=== PATIENT | male | born 1945 | race Caucasian/White ===

== ENCOUNTER 2023-03-20 13:46 | Outpatient (OUT) | payer MEDICARE, OTHER, SELFPAY ==
[2023-03-20 14:17] LABS: Basophils Percent Auto 0.1 % (0.2-2.0); Eosinophils Percent Auto 0.1 % (0.9-7.0); Immature Granulocytes Abs Auto 0.32 10^3/uL (0.00-0.03); Lymphocytes Absolute Auto 1.7 10^3/uL (1.2-3.8); Lymphocytes Percent Auto 10.6 % (20.5-60.0); Mean Corpuscular HGB Conc 32.1 g/dL (29.9-35.2); Mean Corpuscular Hemoglobin 32.7 pg (25.9-34.0); Mean Corpuscular Volume 101.8 fL (80.0-94.0); Mean Platelet Volume 10.9 fL (9.5-13.5); Monocytes Absolute Auto 1.2 10^3/uL (0.3-0.8); Monocytes Percent Auto 7.8 % (1.7-12.0); Neutrophils Absolute Auto 12.5 10^3/uL (1.4-6.5); Neutrophils Percent Auto 79.4 % (43.0-75.0); Platelet Count 208 10^3/uL (150-450); Red Blood Count 1.65 10^6/uL (4.70-6.10); Red Cell Distribution Width 14.1 % (11.0-15.0); White Blood Count 15.7 10^3/uL (4.0-11.0)
[2023-03-20 14:23] LABS: D Dimer 0.21 mg/L FEU (<=0.59)
[2023-03-20 14:40] LABS: Alanine Aminotransferase 23 U/L (16-63); Albumin Level 3.1 g/dL (3.4-5.0); Alkaline Phosphatase 48 U/L (46-116); Anion Gap 12.2; Aspartate Amino Transferase 15 U/L (15-37); BUN Creatinine Ratio 55.5; Bilirubin Total 0.6 mg/dL (0.2-1.0); Calcium 7.6 mg/dL (8.5-10.1); Carbon Dioxide 24.4 mmol/L (21.0-32.0); Chloride 102 mmol/L (98-107); Estimated GFR (African America >60 (>=60); Estimated GFR (Non-African Ame >60 (>=60); Glucose 151 mg/dL (74-106); Potassium 3.6 mmol/L (3.5-5.1); Sodium 135 mmol/L (136-145); Total Protein 5.1 g/dL (6.4-8.2)
[2023-03-20 14:44] LABS: Albumin Globulin Ratio 1.6
[2023-03-20 15:13] LABS: Hematocrit 16.8 % (42.0-54.0); Hemoglobin 5.4 g/dL (14.0-18.0)
--- NOTE | 2023-03-21 | OP_ITS ---
OPERATION DATE: ??03/21/2023 PREOPERATIVE DIAGNOSIS:? Upper GI bleed. POSTOPERATIVE DIAGNOSIS:? Antral prepyloric ulcer. PROCEDURE:? EGD. SURGEON:? Bran Hernández M.D. ANESTHESIA:? Monitored anesthesia care. ESTIMATED BLOOD LOSS: Zero. INDICATIONS AND CONSENT:? Patient is a 78-year-old male with several week history of melena.? Workup revealed severe anemia, as well as elevated BUN, consistent with upper GI bleeding.? Indications, risks, benefits, alternatives of proceeding with EGD were explained extensively to the patient, including the risks of bleeding, aspiration, esophageal/gastric/duodenal perforation or anesthetic complications.? All of his questions were answered.? Informed consent was obtained. PROCEDURE:? Patient brought to the operating room, placed in the left lateral decubitus position.? Monitored anesthesia care was provided.? Bite block was placed in the patient?s mouth.? Scope was inserted into the oropharynx.? Under direct visualization, it was advanced into the esophagus, past the cricopharyngeus, down to the stomach.? The stomach was insufflated with air.? There was bile throughout the stomach.? No old or new blood.? The pylorus was traversed down to the descending portion of the duodenum.? There was no evidence of duodenitis or ulceration.? There was no scarring within the pyloric channel.? Scope was pulled back into the stomach. In the prepyloric area, in a fold, there was noted to be a gastric ulcer.? It was shallow, encompassing approximately 20% of the circumference of the pylorus.? There was no black area or visible vessel.? No old or new blood.? No adherent clot.? There was white exudate on the surface of the ulcer.? The scope was retroflexed.? There was no significant hiatal hernia.? The GE junction was noted at approximately 38 cm.? There was no distal esophagitis or Gonzalez?s changes.? The remainder of the esophagus was unremarkable.? The scope was then withdrawn.? Patient tolerated procedure well, was sent back to the recovery room in good condition. CC:? Karen Wiley M.D. [facility]
--- NOTE | 2023-03-21 | CONS_ITS ---
CONSULTATION DATE: ??03/21/2023 REASON FOR CONSULTATION:? Upper GI bleed. HISTORY OF PRESENT ILLNESS:? Patient is a 78-year-old male with history of coronary artery disease, hypertension, hyperlipidemia, who presented to the emergency room after referral from his family doctor for weakness, as well as severe anemia.? He had been feeling more tired and short of breath with activities over the past several weeks.? Family doctor ordered a hemoglobin which came back at 5.6.? Patient is on Plavix and aspirin due to history of coronary artery disease and status post coronary artery stenting, as well as remote coronary artery bypass grafting.? Had been having melanotic stools for the past month and was on Mobic for arthritis pain.? He recently stopped the Mobic, because he was concerned about it harming his stomach.? Had been taking some Tylenol, but was taking intermittent Mobic.? Denies any nausea or vomiting or hematemesis.? Has had no abdominal pains.? Denies any previous abdominal surgery or history of ulcers in the past.? Been on no recent antibiotics or steroid.? He has had no further melanotic stools during his admission overnight.? He did receive two units of packed red blood cells.? His hemoglobin is up to 7.1 and is currently to receive an additional two units today.? He has been hemodynamically stable, without complaints. PAST SURGICAL HISTORY:? Significant for previous back surgery as well as the coronary artery bypass grafting. SOCIAL HISTORY:? He is a non-smoker.? Reports occasional social alcohol use.? Patient is retired.? FAMILY HISTORY:? Noncontributory. REVIEW OF SYSTEMS:? Ten system review of systems is negative for recent weight loss or weight gain.? Has had increased fatigue.? No light-headedness.? Has had no earache or tinnitus.? No sinus congestion.? No sore throat or hoarseness.? No chest pain, palpitations or syncope.? No chronic cough, shortness of breath or hemoptysis.? No abdominal pain, nausea or vomiting.? He has had melanotic stools.? No hematochezia or bright red blood per rectum.? No dysuria, frequency, urgency or hematuria.? No headaches, seizures or tremors.? No easy bruising or bleeding.? No heat or cold intolerance.? No polydipsia, polyphagia or polyuria. PHYSICAL EXAM:? VITAL SIGNS:? Stable.? He is afebrile.? GENERAL:? In general, he is a well developed, well nourished male, in no acute distress. HEENT:? Normocephalic, atraumatic.? Sclerae anicteric.? Conjunctiva are not injected.? Oral mucosa is moist. NECK:? Supple.? LUNGS:? Clear bilaterally.? ?? CARDIAC EXAM:? Regular rhythm and rate without appreciable murmurs, rubs or gallops. ABDOMEN:? Scaphoid.? There are normal active bowel sounds.? Soft, non-tender, non-distended.? There are no masses, hepatosplenomegaly or hernias appreciated.? No CVA tenderness.? SKIN:? Warm and dry with some ecchymoses of the upper extremities.? No clubbing cyanosis or edema. NEURO EXAM:? Non-focal.? Non-lateralizing.? LABORATORY DATA:? Laboratories are as noted in the HPI.? Coagulation factors were normal. ASSESSMENT:? A 78-year-old male on Plavix, aspirin and Mobic with melanotic stools and anemia, as well as elevated BUN, all consistent with likely upper GI bleed.? PLAN:? The plan is to keep patient NPO with IV protonix b.i.d., as well as Carafate slurry q.i.d.? We will proceed with EGD today for further evaluation.? Indications, risks, benefits, alternatives of proceeding with EGD were explained extensively to the patient, including the risks of bleeding, aspiration, esophageal/gastric/duodenal perforation or anesthetic complications, need for further surgery.? CC:? Stewart Ching M.D. ? Karen Wiley M.D. [facility]
== END 2023-03-20 13:47 | disposition home or self-care (01) ==
LOC: LAB 13:52
PROVIDERS: PCP Family Medicine; Visit Provider Family Medicine
DX: R06.02 Shortness of breath (principal); R06.00 Dyspnea, unspecified; K92.1 Melena
CPT/HCPCS: 36415; 80053; 83880; 85025; 85378

== ENCOUNTER 2023-03-20 15:14 | Inpatient (IN) | payer MEDICARE, OTHER, SELFPAY ==
[2023-03-20] VITALS (63 sets, daily range): BP systolic 109–151; BP diastolic 48–84; PULSE 59–81; RESP 0–24; TEMP 36.6–37.6; O2SAT 82–100; BMI 29.1
--- NOTE | 2023-03-20 15:58 | ED.GIBLEED1 ---
HPI - GI Bleed General Chief complaint: GI Bleed Stated complaint: Abnormal LABS Time Seen by Provider: 03/20/23 15:47 Source: patient and family Mode of arrival: Wheelchair History of Present Illness HPI Narrative: this patient's here with his for evaluation of abnormal lab tests. He states his doctor ordered some outpatient lab. The hospital and they told him his blood count was low. 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 He's been taking motorbike. He stopped taking Bobeck two weeks ago and started taking acetaminophen for his joint aches and pains. He's had a colonoscopy in the past that did not show any malignancies or tumors. He has never had an upper endoscopy. He has quite a few comorbidities including coronary bypass surgery done a number of years ago. He's noticed she's been getting substantial dyspnea with exertion over the last several weeks. He does not use oxygen. He does use occasional alcoholic beverage. Is not on any blood thinners. He does not have any other clinical bleeding that he is aware of. He has some minor stomach discomfort but nothing at this time. He is not seen any bright red blood per rectum just the black tarry stool for several weeks. He attributed it to eating Oreo cookies. Related Data Home Medications Medication Instructions Recorded Confirmed atorvastatin 80 mg tablet 80 mg PO QDAY 03/20/23 03/20/23 clopidogrel 75 mg tablet 75 mg PO 03/20/23 hydralazine 25 mg tablet 25 mg PO BID 03/20/23 03/20/23 hydrochlorothiazide 25 mg tablet 25 mg PO QDAY 03/20/23 03/20/23 meloxicam 15 mg tablet 15 mg PO QDAY 03/20/23 03/20/23 metoprolol tartrate 25 mg tablet 12.5 mg PO Q12H 03/20/23 03/20/23 torsemide 10 mg tablet 10 mg PO QDAY 03/20/23 03/20/23 Allergies Allergy/AdvReac Type Severity Reaction Status Date / Time No Known Drug Allergies Allergy Verified 03/20/23 15:23 Exam Narrative Exam Narrative: awake alert and ?3 good historian vital signs are noted. He does actually appear pale. Constitutional his conjunctiva have no scleral rectus but it is pale. HEENT examination shows eyes ears nose and throat be grossly normal. Neck is soft and supple. He has no neck pain. Restoril his lungs are clear no wheezes rales or rhonchi Chest shows heart sounds be normal no S3-S4 or murmur. He does have a large sternotomyy incision. Doesn't remember how many vessel bypass surgery had but he said it went very well he's been doing well since that time. Extremities show 2-3+ low the knee edema bilaterally. He's had vein harvesting from both sides he does take water pills. He says legs are about the same as usual. Neurological awake alert oriented no focal neurological symptoms or findings. Constitutional Vital Signs, click to edit/add: Last Vital Signs Temp 98.1 F 03/20/23 15:24 Pulse 67 03/20/23 15:24 Resp 18 03/20/23 15:24 BP 139/52 03/20/23 15:24 Pulse Ox 98 03/20/23 15:24 O2 Del Method Room Air 03/20/23 15:24 Course Vital Signs Vital signs: Vital Signs Temperature 98.1 F 03/20/23 15:24 Pulse Rate 67 03/20/23 15:24 Respiratory Rate 18 03/20/23 15:24 Blood Pressure 139/52 03/20/23 15:24 Pulse Oximetry 98 03/20/23 15:24 Oxygen Delivery Method Room Air 03/20/23 15:24 Temperature 98.1 F 03/20/23 15:24 Pulse Rate 67 03/20/23 15:24 Respiratory Rate 18 03/20/23 15:24 Blood Pressure 139/52 03/20/23 15:24 Pulse Oximetry 98 03/20/23 15:24 Oxygen Delivery Method Room Air 03/20/23 15:24 MDM - GI Bleed MDM Narrative Medical decision making narrative: patient with approximately 4-6 week history of black tarry bowel movements with a hemoglobin 5.4. Patient is hemodynamically stable. BUNs substantially elevated consistent with an upper gastrointestinal bleed. Discussed with the primary care doctor on-call. We will transfuse two units of blood and get him admitted to ICU. He is getting fluids and is on Protonix. Did discuss his leg edema and history of cardiac bypass surgery. Discharge Plan Discharge Chief Complaint: GI Bleed Time of Disposition Decision: 17:03 Prescriptions / Home Meds: No Action atorvastatin 80 mg tablet 80 mg PO QDAY clopidogrel 75 mg tablet 75 mg PO hydralazine 25 mg tablet 25 mg PO BID hydrochlorothiazide 25 mg tablet 25 mg PO QDAY meloxicam 15 mg tablet 15 mg PO QDAY metoprolol tartrate 25 mg tablet 12.5 mg PO Q12H torsemide 10 mg tablet 10 mg PO QDAY
--- NOTE | 2023-03-20 16:01 | XR_ITS ---
[address] [address] Patient Name: BASIL FREEMAN MRN: [id number] date: 1945 Sex: M Assigned Patient Location: ER Current Patient Location: ER Accession/Order Number: [id number] Exam Date: 03/20/2023 16:13 Report Date: 03/20/2023 16:25 At the request of: RON GUTIERREZ Procedure: XR chest 1V EXAM: CHEST 1 VIEW HISTORY: dyspnea TECHNIQUE: Chest, one view. COMPARISON: None. FINDINGS: Lungs are clear. No focal consolidation, pleural effusion, or pneumothorax. Pulmonary vasculature is within normal limits. Median sternotomy changes are noted. Heart size within normal limits. XR/XR chest 1V IMPRESSION: 1. No acute cardiopulmonary disease. Electronically authenticated by: STORM CLIFTON Date: 03/20/2023 16:25
[2023-03-20] MEDS: 0.9 % SODIUM CHLORIDE 1,000 ML 100 ML IV (16:18)
[2023-03-20] MEDS: PANTOPRAZOLE SODIUM 40 MG VIAL IV (16:18)
[2023-03-20 16:30] LABS: INR 1.03; Prothrombin Time 10.9 sec (9.0-11.6)
[2023-03-20 16:34] LABS: Alanine Aminotransferase 20 U/L (16-63); Albumin Globulin Ratio 1.3; Albumin Level 3.1 g/dL (3.4-5.0); Alkaline Phosphatase 50 U/L (46-116); Anion Gap 13.1; Aspartate Amino Transferase 17 U/L (15-37); Bilirubin Total 0.5 mg/dL (0.2-1.0); Calcium 8.2 mg/dL (8.5-10.1); Carbon Dioxide 24.8 mmol/L (21.0-32.0); Chloride 104 mmol/L (98-107); Estimated GFR (African America >60 (>=60); Estimated GFR (Non-African Ame >60 (>=60); Globulin 2.3 g/dL; Glucose 139 mg/dL (74-106); Potassium 3.9 mmol/L (3.5-5.1); Sodium 138 mmol/L (136-145); Total Protein 5.4 g/dL (6.4-8.2); Troponin I High Sensitivity 24.9 pg/mL (4.0-76.1)
--- NOTE | 2023-03-20 16:35 | ECG_ITS ---
[facility] Test Date: 2023-03-20 Pat Name: BASIL FREEMAN Department: Room: 2731 Gender: Male Student Worker: : 1945 Requested By: [id number] Order Number: [id number] Reading MD: ZEE AVALOS Measurements Intervals [place] Rate: 67 P: 90 [place]: 150 QRS: 54 QRSD: 126 T: 111 QT: 422 QTc: 437 Interpretive Statements 1100 Sinus rhythm 1470 with occasional supraventricular premature complexes 2540 Incomplete left bundle branch block [address] depression, can't exclude lateral myocardial ischemia 0102 ARTIFACT PRESENT 9150 abnormal ECG No previous ECG available for comparison Electronically Signed On 03-21-2023 7:09:29 EDT by ZEE AVALOS
[2023-03-20] MEDS: SUCRALFATE 1 GM TABLET PO (21:16)
[2023-03-21] VITALS (78 sets, daily range): BP systolic 112–151; BP diastolic 47–74; PULSE 52–69; RESP 2–22; TEMP 36.1–37.4; O2SAT 82–100; BMI 29.1
[2023-03-21] MEDS: FUROSEMIDE 20 MG/2 ML VIAL IVP ×2 (00:16→10:42)
[2023-03-21] MEDS: PANTOPRAZOLE SODIUM 40 MG VIAL IV ×2 (04:56→15:52)
[2023-03-21 05:04] LABS: Basophils Percent Auto 0.1 % (0.2-2.0); Eosinophils Percent Auto 0.1 % (0.9-7.0); Hemoglobin 7.1 g/dL (14.0-18.0); Immature Granulocytes Abs Auto 0.24 10^3/uL (0.00-0.03); Immature Granulocytes Pct Auto 2.5 % (0.0-0.5); Lymphocytes Absolute Auto 1.3 10^3/uL (1.2-3.8); Lymphocytes Percent Auto 13.5 % (20.5-60.0); Mean Corpuscular HGB Conc 32.7 g/dL (29.9-35.2); Mean Corpuscular Hemoglobin 31.1 pg (25.9-34.0); Mean Corpuscular Volume 95.2 fL (80.0-94.0); Mean Platelet Volume 10.9 fL (9.5-13.5); Monocytes Absolute Auto 0.9 10^3/uL (0.3-0.8); Monocytes Percent Auto 9.4 % (1.7-12.0); Neutrophils Absolute Auto 7.1 10^3/uL (1.4-6.5); Neutrophils Percent Auto 74.4 % (43.0-75.0); Platelet Count 163 10^3/uL (150-450); Red Blood Count 2.28 10^6/uL (4.70-6.10); Red Cell Distribution Width 15.9 % (11.0-15.0); White Blood Count 9.6 10^3/uL (4.0-11.0)
[2023-03-21 05:05] LABS: Anion Gap 11.4; BUN Creatinine Ratio 47.1; Calcium 7.6 mg/dL (8.5-10.1); Carbon Dioxide 25.7 mmol/L (21.0-32.0); Chloride 110 mmol/L (98-107); Estimated GFR (African America >60 (>=60); Estimated GFR (Non-African Ame >60 (>=60); Glucose 126 mg/dL (74-106); Potassium 4.1 mmol/L (3.5-5.1); Sodium 143 mmol/L (136-145)
[2023-03-21 05:19] LABS: Hematocrit 21.7 % (42.0-54.0)
[2023-03-21] MEDS: 0.9 % SODIUM CHLORIDE 250 ML IV (07:53)
--- NOTE | 2023-03-21 09:36 | OP_ITS ---
OPERATION DATE:? ?03/21/2023 PREOPERATIVE DIAGNOSIS:? Upper GI bleed. POSTOPERATIVE DIAGNOSIS:? Antral prepyloric ulcer. PROCEDURE:? EGD. SURGEON:? Bran Hernández M.D.? ANESTHESIA:? Monitored anesthesia care. ESTIMATED BLOOD LOSS: Zero. INDICATIONS AND CONSENT:? Patient is a 78-year-old male with several week history of melena.? Workup revealed severe anemia, as well as elevated BUN, consistent with upper GI bleeding.? Indications, risks, benefits, alternatives of proceeding with EGD were explained extensively to the patient, including the risks of bleeding, aspiration, esophageal/gastric/duodenal perforation or anesthetic complications.? All of his questions were answered.? Informed consent was obtained. PROCEDURE:? Patient brought to the operating room, placed in the left lateral decubitus position.? Monitored anesthesia care was provided.? Bite block was placed in the patient?s mouth.? Scope was inserted into the oropharynx.? Under direct visualization, it was advanced into the esophagus, past the cricopharyngeus, down to the stomach.? The stomach was insufflated with air.? There was bile throughout the stomach.? No old or new blood.? The pylorus was traversed down to the descending portion of the duodenum.? There was no evidence of duodenitis or ulceration.? There was no scarring within the pyloric channel.? Scope was pulled back into the stomach. In the prepyloric area, in a fold, there was noted to be a gastric ulcer.? It was shallow, encompassing approximately 20% of the circumference of the pylorus.? There was no black area or visible vessel.? No old or new blood.? No adherent clot.? There was white exudate on the surface of the ulcer.? The scope was retroflexed.? There was no significant hiatal hernia.? The GE junction was noted at approximately 38 cm.? There was no distal esophagitis or Gonzalez?s changes.? The remainder of the esophagus was unremarkable.? The scope was then withdrawn.? Patient tolerated procedure well, was sent back to the recovery room in good condition. [facility]
--- NOTE | 2023-03-21 10:07 | CONS_ITS ---
cc: KAREN WILEY ; Bran Hernández M.D.~ CONSULTATION DATE: ??03/21/2023 ? REASON FOR CONSULTATION:? Upper GI bleed. ? HISTORY OF PRESENT ILLNESS:? Patient is a 78-year-old male with history of coronary artery disease, hypertension, hyperlipidemia, who presented to the emergency room after referral from his family doctor for weakness, as well as severe anemia.? He had been feeling more tired and short of breath with activities over the past several weeks.? Family doctor ordered a hemoglobin which came back at 5.6.? Patient is on Plavix and aspirin due to history of coronary artery disease and status post coronary artery stenting, as well as remote coronary artery bypass grafting.? Had been having melanotic stools for the past month and was on Mobic for arthritis pain.? He recently stopped the Mobic, because he was concerned about it harming his stomach.? Had been taking some Tylenol, but was taking intermittent Mobic.? Denies any nausea or vomiting or hematemesis.? Has had no abdominal pains.? Denies any previous abdominal surgery or history of ulcers in the past.? Been on no recent antibiotics or steroid.? He has had no further melanotic stools during his admission overnight.? He did receive two units of packed red blood cells.? His hemoglobin is up to 7.1 and is currently to receive an additional two units today.? He has been hemodynamically stable, without complaints. ? PAST SURGICAL HISTORY:? Significant for previous back surgery as well as the coronary artery bypass grafting. ? SOCIAL HISTORY:? He is a non-smoker.? Reports occasional social alcohol use.? Patient is retired.? ? FAMILY HISTORY:? Noncontributory. ? REVIEW OF SYSTEMS:? Ten system review of systems is negative for recent weight loss or weight gain.? Has had increased fatigue.? No light-headedness.? Has had no earache or tinnitus.? No sinus congestion.? No sore throat or hoarseness.? No chest pain, palpitations or syncope.? No chronic cough, shortness of breath or hemoptysis.? No abdominal pain, nausea or vomiting.? He has had melanotic stools.? No hematochezia or bright red blood per rectum.? No dysuria, frequency, urgency or hematuria.? No headaches, seizures or tremors.? No easy bruising or bleeding.? No heat or cold intolerance.? No polydipsia, polyphagia or polyuria. PHYSICAL EXAM:? VITAL SIGNS:? Stable.? He is afebrile.? GENERAL:? In general, he is a well developed, well nourished male, in no acute distress. HEENT:? Normocephalic, atraumatic.? Sclerae anicteric.? Conjunctiva are not injected.? Oral mucosa is moist. NECK:? Supple.? LUNGS:? Clear bilaterally.? ?? CARDIAC EXAM:? Regular rhythm and rate without appreciable murmurs, rubs or gallops. ABDOMEN:? Scaphoid.? There are normal active bowel sounds.? Soft, non-tender, non-distended.? There are no masses, hepatosplenomegaly or hernias appreciated.? No CVA tenderness.? SKIN:? Warm and dry with some ecchymoses of the upper extremities.? No clubbing cyanosis or edema. NEURO EXAM:? Non-focal.? Non-lateralizing.? ? LABORATORY DATA:? Laboratories are as noted in the HPI.? Coagulation factors were normal. ? ASSESSMENT:? A 78-year-old male on Plavix, aspirin and Mobic with melanotic stools and anemia, as well as elevated BUN, all consistent with likely upper GI bleed.? ? PLAN:? The plan is to keep patient NPO with IV protonix b.i.d., as well as Carafate slurry q.i.d.? We will proceed with EGD today for further evaluation.? Indications, risks, benefits, alternatives of proceeding with EGD were explained extensively to the patient, including the risks of bleeding, aspiration, esophageal/gastric/duodenal perforation or anesthetic complications, need for further surgery.? ? CC:? Stewart Ching M.D. ? Karen Wiley M.D. [facility]
--- NOTE | 2023-03-21 10:11 | PM.GSCN ---
History of Present Illness Consult details Consult date: 03/21/23 Requesting physician: Stewart Ching Narrative: Patient seen/examined/chart reviewed/consult dictated; 78 yo male on Plavix, asa, and Mobic with 1 month h/o melanotic stools; severe anemia, elevated BUN, all consistent with UGI bleed; keep NPO, Protonix IV, carafate; hold Plavix and asa, all NSAIDs; proceed with EGD under anesthesia for further evaluation. [facility] Medical History (Updated 03/20/23 @ 17:57 by Kasia Martinez) Surgical History (Updated 03/20/23 @ 17:57 by Kasia Martinez) Social History (Updated 03/20/23 @ 17:59 by Kasia Martinez) Within the past year, how often did you have a drink containing alcohol: 2-4 times a month Within the past year, how many standard drinks containing alcohol did you have on a typical day: 1 or 2 Within the past year, how often did you have six or more drinks on one occasion: never Total score: 0 Score interpretation: A score less than 4 is consistent with normal alcohol consumption. Smoking status: Never smoker Non-prescribed substance use: denies use Previous occupational history: construction Known occupational exposures/hazards: No Highest level of school completed/degree received: high school graduate Are you now , , , , never or living with a partner: In a typical week, how many times do you talk on the telephone with family, friends, or neighbors: 3 or more times per week How often do you get together with friends or relatives: once per week Little interest or pleasure in doing things: nearly every day Feeling down, depressed, or hopeless: not at all Feel stressed/tense/nervous/anxious/difficulty sleeping: not at all Do you think of yourself as: straight/heterosexual Meds Home Medications and Allergies Home Medications Medication Instructions Recorded Confirmed Type atorvastatin 80 mg tablet 40 mg PO QDAY 03/20/23 03/20/23 History clopidogrel 75 mg tablet 75 mg PO QDAY 03/20/23 03/20/23 History hydralazine 25 mg tablet 25 mg PO BID 03/20/23 03/20/23 History hydrochlorothiazide 25 mg tablet 25 mg PO QDAY 03/20/23 03/20/23 History meloxicam 15 mg tablet 15 mg PO QDAY PRN pain 03/20/23 03/20/23 History metoprolol tartrate 25 mg tablet 12.5 mg PO BID 03/20/23 03/20/23 History torsemide 10 mg tablet 10 mg PO QDAY 03/20/23 03/20/23 History Allergies Allergy/AdvReac Type Severity Reaction Status Date / Time No Known Drug Allergies Allergy Verified 03/20/23 15:23 Exam Constitutional Vital Signs, click to edit/add: Last Vital Signs Temp 97 F L 03/21/23 09:52 Pulse 59 L 03/21/23 09:52 Resp 16 03/21/23 09:52 BP 120/60 03/21/23 09:52 Pulse Ox 100 03/21/23 09:52 O2 Del Method Room Air 03/21/23 10:07 Results Labs Labs: Abnormal lab results 03/20/23 03/20/23 03/21/23 Range/Units 15:52 17:15 04:33 RBC 2.28 L (4.70-6.10) 10^6/uL Hgb 7.1 L (14.0-18.0) g/dL Hct 21.7 L* (42.0-54.0) % MCV 95.2 H (80.0-94.0) fL RDW 15.9 H (11.0-15.0) % Lymph % (Auto) 13.5 L (20.5-60.0) % Eos % (Auto) 0.1 L (0.9-7.0) % Baso % (Auto) 0.1 L (0.2-2.0) % Neut # (Auto) 7.1 H (1.4-6.5) 10^3/uL [place] # (Auto) 0.9 H (0.3-0.8) 10^3/uL Abs Immat Gran (auto) 0.24 H (0.00-0.03) 10^3/uL Imm/Tot Granulo (auto) 2.5 H (0.0-0.5) % Chloride 110 H (98-107) mmol/L BUN 61.0 H 49.0 H (7.0-18.0) mg/dL Glucose 139 H 126 H (74-106) mg/dL Calcium 8.2 L 7.6 L (8.5-10.1) mg/dL Total Protein 5.4 L (6.4-8.2) g/dL Albumin 3.1 L (3.4-5.0) g/dL Crossmatch See Detail Diabetes panel 03/20/23 03/21/23 Range/Units 15:52 04:33 Sodium 138 143 (136-145) mmol/L Potassium 3.9 4.1 (3.5-5.1) mmol/L Chloride 104 110 H (98-107) mmol/L Carbon Dioxide 24.8 25.7 (21.0-32.0) mmol/L BUN 61.0 H 49.0 H (7.0-18.0) mg/dL Creatinine 1.09 1.04 (0.70-1.30) mg/dL Glucose 139 H 126 H (74-106) mg/dL Calcium 8.2 L 7.6 L (8.5-10.1) mg/dL AST 17 (15-37) U/L ALT 20 (16-63) U/L Alkaline Phosphatase 50 (46-116) U/L Total Protein 5.4 L (6.4-8.2) g/dL Albumin 3.1 L (3.4-5.0) g/dL Calcium panel 03/20/23 03/21/23 Range/Units 15:52 04:33 Calcium 8.2 L 7.6 L (8.5-10.1) mg/dL Albumin 3.1 L (3.4-5.0) g/dL Pituitary panel 03/20/23 03/21/23 Range/Units 15:52 04:33 Sodium 138 143 (136-145) mmol/L Potassium 3.9 4.1 (3.5-5.1) mmol/L Chloride 104 110 H (98-107) mmol/L Carbon Dioxide 24.8 25.7 (21.0-32.0) mmol/L BUN 61.0 H 49.0 H (7.0-18.0) mg/dL Creatinine 1.09 1.04 (0.70-1.30) mg/dL Glucose 139 H 126 H (74-106) mg/dL Calcium 8.2 L 7.6 L (8.5-10.1) mg/dL Adrenal panel 03/20/23 03/21/23 Range/Units 15:52 04:33 Sodium 138 143 (136-145) mmol/L Potassium 3.9 4.1 (3.5-5.1) mmol/L Chloride 104 110 H (98-107) mmol/L Carbon Dioxide 24.8 25.7 (21.0-32.0) mmol/L BUN 61.0 H 49.0 H (7.0-18.0) mg/dL Creatinine 1.09 1.04 (0.70-1.30) mg/dL Glucose 139 H 126 H (74-106) mg/dL Calcium 8.2 L 7.6 L (8.5-10.1) mg/dL Total Bilirubin 0.5 (0.2-1.0) mg/dL AST 17 (15-37) U/L ALT 20 (16-63) U/L Alkaline Phosphatase 50 (46-116) U/L Total Protein 5.4 L (6.4-8.2) g/dL Albumin 3.1 L (3.4-5.0) g/dL All other labs normal.
--- NOTE | 2023-03-21 10:34 | CA_ITS ---
Patient: BASIL FREEMAN Exam Date: 03/21/2023 : 1945 Gender:M Ordering : DR Stewart Ching . Admission #: [id number] Family : Order #: [id number] CLICK HERE TO VIEW EXAM ECHOCARDIOGRAM REPORT PROCEDURE: CA ECHO DOPPLER COMPLETE INDICATIONS: LE edema, CABG, hypertension COMPARISON: None. DESCRIPTION: COMPLETE ECHOCARDIOGRAM Real-time transthoracic echocardiography with 2D, M-mode, spectral and color flow Doppler performed. QUALITY: Technical quality was good. LEFT VENTRICLE: Normal chamber size. Mild concentric left ventricular hypertrophy. LV EF: Normal left ventricular ejection fraction, (>55%). DIASTOLIC: Grade II diastolic dysfunction. ATRIAL SEPTUM: Visually appears intact. LEFT ATRIUM: Mild dilatation. RIGHT ATRIUM: Mild dilatation. RIGHT VENTRICLE: Normal chamber size. Normal right ventricular systolic function. TRICUSPID VALVE: Normal mobility and thickness. No stenosis with trivial regurgitation. Unable to assess right sided pressures due to lack of measurable tricuspid regurgitation. MITRAL VALVE: Moderately thickened with normal mobility. No evidence of mitral valve stenosis. Mild mitral annular calcification. Mild mitral regurgitation. AORTIC VALVE: Normal trileaflet appearance. Mildly calcified aortic valve. Normal leaflet mobility. No evidence of aortic valve stenosis. No aortic regurgitation. AORTIC ROOT: Normal diameter and appearance. PULMONIC VALVE: Normal thickness and mobility. No stenosis. Trivial regurgitation. PERICARDIUM: No evidence of pericardial effusion. IVC: IVC is normal in size with no collapse. PLEURA: CONCLUSION: 1. Mild concentric left ventricular hypertrophy with normal systolic function. LV EF is 55-60%. 2. Normal right ventricular size and systolic function. 3. No significant valvular dysfunction. 4. Grade II diastolic dysfunction. 5. Unable to assess right sided pressures due to lack of measurable tricuspid regurgitation. Adult Echocardiography Procedure Report Left Ventricle LVEDD (3.7 - 5.6 cm): 5.02 cm LVESD (2.2 - 4.0 cm): 2.60 cm LVIVS thickness (0.6 - 1.2 cm): 1.36 cm LVPW thickness (0.5 - 1.0 cm): 1.17 cm e': 0.14 m/s E - e': 8.64 LVOT Max Gradient: 3.26 mm[Hg] LVOT Area (cm2): 0.90 m/s Peak Velocity (LVOT): 0.90 m/s LVOT Diameter 2.30 cm Left Atrium LA Volume Index (2D A2C): 37.03 ml/m2 Left Atrium Systolic Dimension: 4.09 cm Mitral Valve MV E to A Ratio: 1.42 Mitral Valve A-Wave Peak Velocity: 0.86 m/s Mitral Valve E-Wave Peak Velocity: 1.23 m/s Right Ventricle Aorta AO Root Diam: 3.50 cm Aortic Valve AoV Area (Peak Nate): 2.45 cm2, 2.45 cm2 Peak Velocity(Antegrade Flow): 1.53 m/s Peak Gradient(Antegrade Flow): 9.37 mm[Hg] Mean Velocity(Antegrade Flow): 1.01 m/s Mean Gradient(Antegrade Flow): 4.77 mm[Hg] Velocity Time Integral: 38.47 cm Tricuspid Valve Peak Velocity (Regurgitant Flow): 4.35 m/s Pulmonic Valve Peak Velocity: 0.99 m/s Peak Gradient: 3.70 mm[Hg], 4.15 mm[Hg] Right Atrium Right Atrium Systolic Pressure: 35.94 ml, 35.94 ml Dictated by: Flaco Carver M.D. on 03/22/2023 at 09:09 Approved by: Flaco Carver M.D. on 03/22/2023 at 09:20
--- NOTE | 2023-03-21 10:39 | CM.NOTE ---
Rounds made with Dr. Ching. Mr. Savage seen in PACU prior to EDG this am. Dr. Ching explained will order 2 additional units of blood and an Echo. and daughter present while discussing new orders. Understanding verbalized by all.
--- NOTE | 2023-03-21 10:53 | P.HP_ITS ---
H&P: HPI History of Present Illness Chief complaint: Anemia Narrative: 78 y/o male sent to ER with anemia. C/o fatigue and SOB for several weeks. Notice SOB with exertion and need frequent breaks. Symptoms worse and hard to walk around house. Seen PCP and labs showed anemia and directed to ER. Takes plavix and mobic. Stopped mobic few weeks ago and taking tylenol. History of LE edema and recently worse. Last colonoscopy in 2019 but never had EGD. Reports black stools for few weeks and patient attributed this to eating oreos. Hgb 5.4 and BNP normal. Admitted for treatment. Given 2 units PRBC and general surgery consulted. Started IV protonix and held plavix and mobic. Resumed home medication. Feels better this am but still SOB and fatigue. Review of Systems ROS Constitutional Reports: fatigue; Denies: fever, chills or night sweats Cardiovascular Reports: edema; Denies: chest pain, palpitations or lightheadedness Respiratory Reports: shortness of breath; Denies: cough or wheezing Gastrointestinal Reports: blood in stool; Denies: abdominal pain, nausea or vomiting Genitourinary Denies: painful urination [facility] Medical History (Updated 03/21/23 @ 10:47 by Stewart Ching MD) Surgical History (Updated 03/20/23 @ 17:57 by Kasia Martinez) Social History (Updated 03/20/23 @ 17:59 by Kasia Martinez) Within the past year, how often did you have a drink containing alcohol: 2-4 times a month Within the past year, how many standard drinks containing alcohol did you have on a typical day: 1 or 2 Within the past year, how often did you have six or more drinks on one occasion: never Total score: 0 Score interpretation: A score less than 4 is consistent with normal alcohol consumption. Smoking status: Never smoker Non-prescribed substance use: denies use Previous occupational history: construction Known occupational exposures/hazards: No Highest level of school completed/degree received: high school graduate Are you now , , , , never or living with a partner: In a typical week, how many times do you talk on the telephone with family, friends, or neighbors: 3 or more times per week How often do you get together with friends or relatives: once per week Little interest or pleasure in doing things: nearly every day Feeling down, depressed, or hopeless: not at all Feel stressed/tense/nervous/anxious/difficulty sleeping: not at all Do you think of yourself as: straight/heterosexual Meds Home Medications and Allergies Home Medications Medication Instructions Recorded Confirmed Type atorvastatin 80 mg tablet 40 mg PO QDAY 03/20/23 03/20/23 History clopidogrel 75 mg tablet 75 mg PO QDAY 03/20/23 03/20/23 History hydralazine 25 mg tablet 25 mg PO BID 03/20/23 03/20/23 History hydrochlorothiazide 25 mg tablet 25 mg PO QDAY 03/20/23 03/20/23 History meloxicam 15 mg tablet 15 mg PO QDAY PRN pain 03/20/23 03/20/23 History metoprolol tartrate 25 mg tablet 12.5 mg PO BID 03/20/23 03/20/23 History torsemide 10 mg tablet 10 mg PO QDAY 03/20/23 03/20/23 History Allergies Allergy/AdvReac Type Severity Reaction Status Date / Time No Known Drug Allergies Allergy Verified 03/20/23 15:23 Exam Constitutional Vital Signs, click to edit/add: Last Vital Signs Temp 98.3 F 03/21/23 10:36 Pulse 54 L 03/21/23 10:36 Resp 16 03/21/23 10:36 BP 125/59 03/21/23 10:36 Pulse Ox 93 L 03/21/23 10:36 O2 Del Method Room Air 03/21/23 10:36 Documenting provider has reviewed patient's vital signs: yes Common normals: no apparent distress, oriented x3 and alert HENMN Common normals: normocephalic Eye Common normals: PERRL and EOMs intact bilaterally Respiratory Common normals: normal respiratory effort and clear to auscultation bilaterally Cardio Common normals: regular rate, regular rhythm, no gallops, no murmurs and no rub GI Common normals: Normal to inspection, nondistended, normoactive bowel sounds present and non-tender Extremity General: edema (2+ bipedal pitting edema) Results Labs Labs: Short CBC 03/21/23 Range/Units 04:33 WBC 9.6 (4.0-11.0) 10^3/uL Hgb 7.1 L (14.0-18.0) g/dL Hct 21.7 L* (42.0-54.0) % Plt Count 163 (150-450) 10^3/uL BMP 03/20/23 03/21/23 15:52 04:33 Sodium 138 143 Potassium 3.9 4.1 Chloride 104 110 H Carbon Dioxide 24.8 25.7 BUN 61.0 H 49.0 H Creatinine 1.09 1.04 Glucose 139 H 126 H Calcium 8.2 L 7.6 L Liver Function 03/20/23 Range/Units 15:52 Total Bilirubin 0.5 (0.2-1.0) mg/dL AST 17 (15-37) U/L ALT 20 (16-63) U/L Alkaline Phosphatase 50 (46-116) U/L Albumin 3.1 L (3.4-5.0) g/dL Assessment and Plan Assessment and Plan (1) Gastrointestinal bleed: (2) Anemia due to blood loss: (3) Leg edema: (4) Hypertension: (5) CAD (coronary artery disease): (6) Arthritis: Plan General surgery consulted and scheduled for EGD. Continue IV protonix and hold mobic and plavix. Resume other home medication. Increased edema and history of CAD but denies CHF and BNP normal in ER. Check echo. Hgb improved after 2 units but remains low and give additional 2 units. Give lasix between. Patient made inpatient and will need greater than 2 midnights in hospital.
[2023-03-21] MEDS: METOPROLOL TARTRATE 25 MG TABLET 12.5 MG PO (11:41)
[2023-03-21] MEDS: HYDRALAZINE HCL 25 MG TABLET PO ×2 (11:41→20:12)
[2023-03-21] MEDS: HYDROCHLOROTHIAZIDE 25 MG TABLET PO (11:41)
[2023-03-21] MEDS: SUCRALFATE 1 GM TABLET PO ×3 (11:41→21:19)
--- NOTE | 2023-03-21 14:09 | SWNOTE1 ---
SW met with pt to discuss dc needs. Pt is independent at home and lives with his . Pt has no concerns about discharge. Pt has no needs at discharge. SW reviewed IMM form with pt and he voiced understanding, no questions. Pt signed form, original given to pt and copy placed in chart.
--- NOTE | 2023-03-21 15:03 | SWNOTE1 ---
SW went back in to room to speak with pt's and daughter. Daughter concern that pt is weaker and that his works during day. Pt's daughter concerned he will not get proper nutrition and is interested meals on wheels. They live in [facility], to check into for them. Pt's daughter also asked about Home Health. SW let her know he would likely not qualfiy for therapy and the nurse we could possibly get for once a week to come in and check vitals. BANDAR also spoke with them about private caregivers, but they are not interested at this time. Biggest concern is the meals. SW to reach out to [facility].
--- NOTE | 2023-03-21 15:24 | SWNOTE1 ---
BANDAR called [facility] wheels and left message for Perla. BANDAR left paper in room with number for meals on wheels in [facility] for pt's daughter and .
[2023-03-21 18:32] LABS: Hematocrit 28.4 % (42.0-54.0); Hemoglobin 9.5 g/dL (14.0-18.0); Mean Corpuscular HGB Conc 33.5 g/dL (29.9-35.2); Mean Corpuscular Hemoglobin 30.8 pg (25.9-34.0); Mean Corpuscular Volume 92.2 fL (80.0-94.0); Mean Platelet Volume 10.9 fL (9.5-13.5); Platelet Count 176 10^3/uL (150-450); Red Blood Count 3.08 10^6/uL (4.70-6.10); Red Cell Distribution Width 16.5 % (11.0-15.0); White Blood Count 9.5 10^3/uL (4.0-11.0)
[2023-03-22] VITALS (10 sets, daily range): BP systolic 110–129; BP diastolic 45–55; PULSE 56–62; RESP 14–16; TEMP 36.8–37.2; O2SAT 97–98
[2023-03-22] MEDS: PANTOPRAZOLE SODIUM 40 MG VIAL IV (05:11)
[2023-03-22 05:57] LABS: Basophils Percent Auto 0.1 % (0.2-2.0); Eosinophils Absolute Auto 0.1 10^3/uL (0.0-0.7); Eosinophils Percent Auto 0.6 % (0.9-7.0); Hemoglobin 9.1 g/dL (14.0-18.0); Immature Granulocytes Abs Auto 0.14 10^3/uL (0.00-0.03); Immature Granulocytes Pct Auto 1.6 % (0.0-0.5); Lymphocytes Absolute Auto 0.9 10^3/uL (1.2-3.8); Lymphocytes Percent Auto 10.4 % (20.5-60.0); Mean Corpuscular HGB Conc 33.7 g/dL (29.9-35.2); Mean Corpuscular Hemoglobin 31.2 pg (25.9-34.0); Mean Corpuscular Volume 92.5 fL (80.0-94.0); Mean Platelet Volume 11.1 fL (9.5-13.5); Monocytes Absolute Auto 0.7 10^3/uL (0.3-0.8); Monocytes Percent Auto 8.3 % (1.7-12.0); Platelet Count 169 10^3/uL (150-450); Red Blood Count 2.92 10^6/uL (4.70-6.10); Red Cell Distribution Width 16.1 % (11.0-15.0); White Blood Count 8.8 10^3/uL (4.0-11.0)
[2023-03-22 06:46] LABS: Anion Gap 7.2; BUN Creatinine Ratio 41.1; Calcium 7.7 mg/dL (8.5-10.1); Carbon Dioxide 28.8 mmol/L (21.0-32.0); Chloride 105 mmol/L (98-107); Estimated GFR (African America >60 (>=60); Estimated GFR (Non-African Ame >60 (>=60); Glucose 131 mg/dL (74-106); Sodium 137 mmol/L (136-145)
[2023-03-22] MEDS: SUCRALFATE 1 GM TABLET PO (07:54)
[2023-03-22] MEDS: METOPROLOL TARTRATE 25 MG TABLET 12.5 MG PO (08:09)
[2023-03-22] MEDS: TORSEMIDE 20 MG TABLET 10 MG PO (08:09)
[2023-03-22] MEDS: HYDROCHLOROTHIAZIDE 25 MG TABLET PO (08:09)
[2023-03-22] MEDS: HYDRALAZINE HCL 25 MG TABLET PO (08:09)
--- NOTE | 2023-03-22 10:20 | CM.NOTE ---
Rounds made with Dr. Ching, ok to discharge to home today. No discharge needs identified. Dr. Ching spoke with pt about discharge medications for ulcer and will stop ASA.
--- NOTE | 2023-03-22 10:58 | PM.DS1 ---
DS: Providers Provider Date of admission: 03/20/23 18:30 Primary care physician: LOCO WILEY Consults: 03/20/23 18:34 Consult to General Surgeon ONCE Consulting Provider: Bran Hernández Reason for consultation: GI bleed Has provider been notified: Yes DS: Diagnosis Discharge Diagnosis (1) Acute ulcer of pyloric antrum: (2) Gastrointestinal bleed: (3) Anemia due to blood loss: (4) Leg edema: (5) Hypertension: (6) CAD (coronary artery disease): (7) Arthritis: DS: Summary Hospital Course Hospital Course: Reason for admission: See H&P for details. 78 y/o male sent to ER with anemia. C/o fatigue and SOB for several weeks. Notice SOB with exertion and need frequent breaks. Symptoms worse and hard to walk around house. Seen PCP and labs showed anemia and directed to ER. Takes aspirin, plavix and mobic. Stopped mobic few weeks ago and taking tylenol. History of LE edema and recently worse. Last colonoscopy in 2019 but never had EGD. Reports black stools for few weeks and patient attributed this to eating oreos. Hgb 5.4 and BNP normal. Admitted for treatment. Hospital course: Given 2 units PRBC and general surgery consulted. Started IV protonix and held aspirin, plavix and mobic. Resumed home medication. Hgb improved but still low and gave additional 2 units PRBC. EGD performed and showed antral ulcer without active bleeding. Added carafate. Did well in hospital. Echo performed and preliminary read normal. Tolerating diet and strength improved. Hgb stable. Discharged home in stable condition. History of CABG and carotid endarterectomy. Recommend continue plavix and stop mobic and aspirin. Resume other home medication as directed. F/u with PCP in 1-2 weeks. Time Spent with Patient Time attestation: Total time spent providing and/or coordinating discharge services: Exam Constitutional Vital Signs, click to edit/add: Last Vital Signs Temp 98.4 F 03/22/23 09:00 Pulse 56 L 03/22/23 09:59 Resp 16 03/22/23 09:00 BP 122/54 03/22/23 09:00 Pulse Ox 98 03/22/23 09:00 O2 Del Method Room Air 03/22/23 09:00 Documenting provider has reviewed patient's vital signs: yes Common normals: no apparent distress, oriented x3 and alert HENMT Common normals: normocephalic Eye Common normals: PERRL and EOMs intact bilaterally Respiratory Common normals: normal respiratory effort and clear to auscultation bilaterally Cardio Common normals: regular rate, regular rhythm, no gallops, no murmurs and no rub GI Common normals: Normal to inspection, nondistended, normoactive bowel sounds present and non-tender Extremity General: edema (2+ bipedal pitting edema) DS: Data Data Completed and Pending Labs on day of discharge: Labs from last 24 hours 03/22/23 03/21/23 03/21/23 05:15 18:19 04:35 WBC 8.8 9.5 RBC 2.92 L 3.08 L Hgb 9.1 L 9.5 L Hct 27.0 L 28.4 L MCV 92.5 92.2 MCH 31.2 30.8 MCHC 33.7 33.5 RDW 16.1 H 16.5 H Plt Count 169 176 MPV 11.1 10.9 Neut % (Auto) 79.0 H Lymph % (Auto) 10.4 L [place] % (Auto) 8.3 Eos % (Auto) 0.6 L Baso % (Auto) 0.1 L Neut # (Auto) 7.0 H Lymph # (Auto) 0.9 L [place] # (Auto) 0.7 Eos # (Auto) 0.1 Baso # (Auto) 0.0 Abs Immat Gran (auto) 0.14 H Imm/Tot Granulo (auto) 1.6 H Sodium 137 Potassium 4.0 Chloride 105 Carbon Dioxide 28.8 Anion Gap 7.2 BUN 39.0 H Creatinine 0.95 Est GFR ( Amer) >60 Est GFR (Non-Af Amer) >60 BUN/Creatinine Ratio 41.1 Glucose 131 H Calcium 7.7 L NT-Pro-B Natriuret Pep 532.0 Crossmatch 03/20/23 17:15 WBC RBC Hgb Hct MCV MCH MCHC RDW Plt Count MPV Neut % (Auto) Lymph % (Auto) [place] % (Auto) Eos % (Auto) Baso % (Auto) Neut # (Auto) Lymph # (Auto) [place] # (Auto) Eos # (Auto) Baso # (Auto) Abs Immat Gran (auto) Imm/Tot Granulo (auto) Sodium Potassium Chloride Carbon Dioxide Anion Gap BUN Creatinine Est GFR ( Amer) Est GFR (Non-Af Amer) BUN/Creatinine Ratio Glucose Calcium NT-Pro-B Natriuret Pep Crossmatch See Detail Discharge Plan Discharge Disposition: Home, Self-Care Discharge Medications: New sucralfate 1 gram Tablet 1 g PO ACHS Qty: 120 0RF pantoprazole 40 mg tablet,delayed release (DR/EC) 40 mg PO BID Qty: 60 0RF Continued atorvastatin 80 mg tablet 40 mg PO QDAY clopidogrel 75 mg tablet 75 mg PO QDAY hydralazine 25 mg tablet 25 mg PO BID hydrochlorothiazide 25 mg tablet 25 mg PO QDAY metoprolol tartrate 25 mg tablet 12.5 mg PO BID torsemide 10 mg tablet 10 mg PO QDAY Discontinued meloxicam 15 mg tablet 15 mg PO QDAY PRN (Reason: pain) Activity: resume usual activities as tolerated Diet: regular diet Patient Instructions: Sucralfate (By mouth) (Carafate), Pantoprazole (By mouth) (Protonix), Peptic Ulcer (GEN) Forms: Portal Instructions Follow Up Appointments: Dr Wiley 14 @ 8:30 Discharge Date/Time: 03/22/23 10:48
--- NOTE | 2023-03-22 15:56 | SWNOTE1 ---
SW called and spoke with [facility] and they took down information and will reach out to pt's .
--- NOTE | 2023-03-23 14:50 | CM.DCFOLLOWU ---
Person spoke with:patient How are you feeling? well, just going to take some time to get strength back up, per patient How is your pain? no pain Did you understand your discharge instructions? yes Do you have any questions about your discharge instructions? no Were you given any prescriptions at discharge? yes Were you able to get your prescriptions filled? yes Do you understand how to take your medications as ordered? yes Do you have any questions about your follow up appointment and do you plan to keep your follow up appointment? No questions, follow up on 03/29/23 Is there anything else that you would like to discuss? no Questions/Comments/Concerns/Other:
== END 2023-03-22 10:48 | disposition home or self-care (01) | DRG 378 ==
LOC: ER 17:03 → ICU 17:30
PROVIDERS: Surgery; Admitting Provider Family Medicine; Emergency Provider Emergency Medicine Emergency Medical Services; PCP Family Medicine; Visit Provider Family Medicine
PROC: 0DJ08ZZ Inspection of Upper Intestinal Tract, Via Natural or Artificial Opening Endoscopic (ICD-10-PCS; principal; 2023-03-21 11:05)
DX: K25.0 Acute gastric ulcer with hemorrhage (principal); D62 Acute posthemorrhagic anemia; R60.0 Localized edema; I10 Essential (primary) hypertension; I25.10 Atherosclerotic heart disease of native coronary artery without angina pectoris; E78.5 Hyperlipidemia, unspecified; M19.90 Unspecified osteoarthritis, unspecified site; Z95.1 Presence of aortocoronary bypass graft; Z95.5 Presence of coronary angioplasty implant and graft; Z79.02 Long term (current) use of antithrombotics/antiplatelets; Z79.82 Long term (current) use of aspirin; Z79.899 Other long term (current) drug therapy
CPT/HCPCS: 36415; 36430; 71045; 80048; 80053; 83880; 84484; 85025; 85027; 85378; 85610; 86850; 86900; 86901; 86920; 93005; 93306; 96374; 96375; 96376; 99285; G0328; J2704; P9016

== ENCOUNTER 2023-04-20 10:24 | Outpatient (OUT) | payer MEDICARE, OTHER, SELFPAY ==
--- NOTE | 2023-04-20 10:52 | XR_ITS ---
[address] [address] Patient Name: BASIL FREEMAN MRN: [id number] date: 1945 Sex: M Assigned Patient Location: RAD Current Patient Location: [facility] Accession/Order Number: [id number] Exam Date: 04/20/2023 10:43 Report Date: 04/20/2023 13:02 At the request of: NON-STAFF PHYSICIAN Procedure: XR cervical spine 2-3V EXAM: XR cervical spine 2-3V HISTORY: Cervical Spine Pain M54.2 COMPARISON: None. TECHNIQUE: 3 views Findings/impression: Anterolisthesis of C5 over C6 by 4 mm. Maintained vertebral body heights. Multilevel endplate degenerative changes, disc disease, facet arthropathy, and anterior spurring of C5-C7. No acute fracture. Electronically authenticated by: MAGDALENO LOPEZ Date: 04/20/2023 13:02
== END 2023-04-20 10:25 | disposition home or self-care (01) ==
LOC: RAD 10:25
PROVIDERS: PCP Family Medicine
DX: M54.2 Cervicalgia (principal); M50.30 Other cervical disc degeneration, unspecified cervical region
CPT/HCPCS: 72040

== ENCOUNTER 2023-05-07 10:32 | Outpatient (OUT) | payer MEDICARE, OTHER, SELFPAY ==
--- NOTE | 2023-05-07 10:49 | MR_ITS ---
[address] [address] Patient Name: BASIL FREEMAN MRN: [id number] date: 1945 Sex: M Assigned Patient Location: MRI Current Patient Location: MRI Accession/Order Number: [id number] Exam Date: 05/07/2023 11:00 Report Date: 05/07/2023 14:24 At the request of: NON-STAFF PHYSICIAN Procedure: MR cervical spine wo con EXAM: MR cervical spine wo con HISTORY: Cervical Stenosis M48.02 COMPARISON: April 2023 cervical spine x-ray TECHNIQUE: Sagittal T1, axial sagittal T2, sagittal STIR, axial T2* FINDINGS: Straightening of the cervical lordosis. 3 mm anterolisthesis C3 on C4 C4 on C5. 4 mm anterolisthesis C5 on C6. Anterior osteophyte formation. Near bridging anterior osteophytes C6-7. Moderate disc space narrowing C6-7. Mild to moderate joint space narrowing and osteophyte formation C1-C2 C2-3: Mild disc bulge. No significant stenosis C3-4: Posterior osteophyte and disc formation. Ligamentum flavum hypertrophy. Right facet uncovertebral hypertrophy. Mild central stenosis. Severe left and moderate right-sided foraminal narrowing C4-5: Posterior osteophyte and disc formation with uncovertebral hypertrophy. Left greater than right facet hypertrophy. Mild central stenosis. Severe left and moderate right foraminal narrowing C5-6: Posterior osteophyte disc complex with ligamentum flavum hypertrophy results in moderate central stenosis. Facet and uncovertebral hypertrophy results in severe right and moderate severe left foraminal stenoses C6-7: Posterior osteophyte and disc formation with ligamentum flavum hypertrophy. This results in severe central stenosis. Effacement of the CSF column . Facet and uncovertebral hypertrophy results in severe foraminal narrowing C7-T1: Central osteophyte and disc formation results in [id number] central stenosis. Uncovertebral hypertrophy without significant foraminal narrowing MR/MR cervical spine wo con IMPRESSION: Moderate to severe degenerative changes of the cervical spine most marked C5-6 and C6-7 C6-7: Multifactorial severe central canal and foraminal stenoses. Mild deformity of the cord C5-6: Moderate multifactorial central stenosis Moderate to severe foraminal narrowing most marked on the left C3-4 and C4-5, right C5-6, and bilaterally C6-7 Electronically authenticated by: LUIS FELIPE MAYO Date: 05/07/2023 14:24
== END 2023-05-07 10:33 | disposition home or self-care (01) ==
LOC: MRI 10:35
PROVIDERS: PCP Family Medicine
DX: M48.02 Spinal stenosis, cervical region (principal); M48.061 Spinal stenosis, lumbar region without neurogenic claudication
CPT/HCPCS: 72141

== ENCOUNTER 2023-05-07 10:38 | Outpatient (OUT) | payer MEDICARE, OTHER, SELFPAY | END 2023-05-07 10:39 | disposition home or self-care (01) | LOC: PST 10:39 | PROVIDERS: PCP Family Medicine; Visit Provider Surgery | DX: Z01.818 Encounter for other preprocedural examination (principal); K25.0 Acute gastric ulcer with hemorrhage ==

== ENCOUNTER 2023-05-10 10:09 | Outpatient (OUT) | payer MEDICARE, OTHER, SELFPAY ==
--- NOTE | 2023-05-10 10:15 | MR_ITS ---
The [address] [address] Patient Name: BASIL FREEMAN MRN: [facility]:[id number] date: 1945 Sex: M Assigned Patient Location: MRI Current Patient Location: MRI Accession/Order Number: [id number] Exam Date: 05/10/2023 10:30 Report Date: 05/10/2023 11:27 At the request of: NON-STAFF PHYSICIAN Procedure: MR lumbar spine wo con MR lumbar spine wo con, 05/10/2023 10:30 AM EDT INDICATION: Lumbar Spinal Stenosis M48.062 COMPARISON: There is no appropriate prior study for comparison. TECHNIQUE: Multiplanar, multisequential MRI images of lumbar spine were obtained without contrast. FINDINGS: For dictation purposes, the lowest complete disc space in the lumbar spine considered as L5-S1. There is loss of normal physiologic lumbar lordosis. The vertebral height is preserved. The conus medullaris is at the level of L1. No signal abnormality within the visualized spinal cord is noted. There is bilateral short pedicles and epidural lipomatosis predisposing patients with canal stenosis. Level of T12-L1 is unremarkable. At the level of L1-L2, there are disc bulge with mild right and moderate left neuroforaminal narrowing and severe canal stenosis. At the level of L2-L3, there are disc bulge with moderate right and severe left neuroforaminal narrowing and severe canal stenosis. At the level of L3-4, there are disc bulge with mild right and moderate left neuroforaminal narrowing and severe canal stenosis. At the level of L4-5, there are disc bulge with superimposed central and right lateral extrusion with severe right and moderate left neuroforaminal narrowing and severe canal stenosis. At the level of L5-S1, there are disc bulge with moderate bilateral neuroforaminal narrowing and no canal stenosis. There is possible right hemilaminectomy at the level of L4-L5 and L5-S1. The paraspinal muscles show severe atrophy at the level of L5-S1. MR/MR lumbar spine wo con IMPRESSION: Bilateral short pedicles and epidural lipomatosis predisposing patient to canal stenosis. Moderate to severe degenerative changes of lumbar spine in particular at L1-L5 with severe canal stenosis. Electronically authenticated by: EDDIE GILES Date: 05/10/2023 11:27
== END 2023-05-10 10:10 | disposition home or self-care (01) ==
LOC: MRI 10:09
PROVIDERS: PCP Family Medicine
DX: M48.02 Spinal stenosis, cervical region (principal); M48.062 Spinal stenosis, lumbar region with neurogenic claudication; M47.816 Spondylosis without myelopathy or radiculopathy, lumbar region
CPT/HCPCS: 72148

== ENCOUNTER 2023-05-16 06:10 | Day surgery (SDC) | payer MEDICARE, OTHER, SELFPAY ==
--- NOTE | 2023-05-16 | OP_ITS ---
OPERATION DATE: ??05/16/2023 PREOPERATIVE DIAGNOSIS:? History of pre-pyloric ulcer and upper GI bleed back in February, presumed due to NSAIDs. POSTOPERATIVE DIAGNOSIS:? Healed pre-pyloric ulcer. PROCEDURE:? EGD. SURGEON:? Bran Hernández M.D. ANESTHESIA:? Monitored anesthesia care. ESTIMATED BLOOD LOSS: ?Zero. INDICATIONS AND CONSENT:? Patient is a 78-year-old male with history of upper GI bleed, who was found to have a pre-pyloric ulcer back in February.? He was on NSAIDs at the time as well as Plavix.? Indications, risks, benefits, alternatives of proceeding with EGD to document healing of the pre-pyloric ulcer were explained extensively to the patient, including the risks of bleeding, aspiration, esophageal/gastric/duodenal perforation or anesthetic complications.? All of his questions were answered.? Informed consent was obtained. PROCEDURE:? Patient was brought to the operating room, placed in the left lateral decubitus position.? Monitored anesthesia care was provided.? Bite block was placed in the patient?s mouth.? Scope was inserted into the oropharynx.? Under direct visualization, it was advanced into the esophagus, past the cricopharyngeus, down to the stomach.? The stomach was insufflated with air.? The pylorus was traversed down to the descending portion of the duodenum.? There was no evidence of duodenitis or ulceration.? There was no scarring within the pyloric channel.? There was no old or new blood within the stomach.? The area of the pre-pyloric ulcer was healed with some evidence of scar and neovascularity consistent with the healing ulcer.? The scope was retroflexed.? There was no significant hiatal hernia.? No other gastric mucosal abnormality. The GE junction was noted at approximately 39 cm.? There was no distal esophagitis or Gonzalez?s changes.? The remainder of the esophagus was unremarkable.? The scope was then withdrawn.? Patient tolerated procedure well, was sent to recovery room in good condition. CC:? Dr. Xander MDAISON
[2023-05-16 06:50] VITALS: BP 101/57; PULSE 51; RESP 16; TEMP 36.2; O2SAT 98; BMI 28.6
--- NOTE | 2023-05-16 07:00 | PC.NURSE ---
bruising bilateral arms from taking blood thinner
[2023-05-16] MEDS: LACTATED RINGER'S SOLUTION 1,000 ML 50 ML IV (07:05)
[2023-05-16 07:43] VITALS: BP 96/48; PULSE 48; RESP 16; O2SAT 98
[2023-05-16 08:01] VITALS: BP 106/63; PULSE 48; RESP 16; O2SAT 98
== END 2023-05-16 08:13 | disposition home or self-care (01) ==
PROVIDERS: PCP Family Medicine; Visit Provider Surgery
PROC: (CPT 43235; principal; 2023-05-16 07:30)
DX: K25.0 Acute gastric ulcer with hemorrhage (principal); I10 Essential (primary) hypertension; I25.10 Atherosclerotic heart disease of native coronary artery without angina pectoris; E78.5 Hyperlipidemia, unspecified; Z95.1 Presence of aortocoronary bypass graft; N40.0 Benign prostatic hyperplasia without lower urinary tract symptoms; Z90.49 Acquired absence of other specified parts of digestive tract; Z87.891 Personal history of nicotine dependence; Z79.02 Long term (current) use of antithrombotics/antiplatelets
CPT/HCPCS: 43235; J2704

== ENCOUNTER 2023-07-17 06:07 | Outpatient (OUT) | payer MEDICARE, OTHER, SELFPAY ==
--- NOTE | 2023-07-17 | NM_ITS ---
Patient Name: BASIL FREEMAN MR#: [id number] : 1945 Exam Date: 07/17/2023 Ordering Doctor: DR Aniya Hill M.D. RADIOLOGY REPORT PROCEDURE: NM GINA PERF SPECT REST STR COMPARISON: None. INDICATIONS: Atherosclerotic heart disease of [place] coronary artery with TECHNIQUE: Exam Description: Stress/Rest one day protocol gated SPECT Rest Imagin.8 mCi Tc-99m Cardiolite IV on 07/17/2023 Stress Imaging 30.7 mCi Tc-99m Cardiolite IV on 07/17/2023 Exercise Protocol: 0.4 mg Lexiscan given IV Heart Rate (bpm): Rest: 46 Max: 62 PMHR: 43 Blood Pressure: Rest: 130/66 Max: 136/62 Symptoms: Rest and peak stress ECG findings were pending and the exercise portion of the study was pending per attending physician Dr. OWENS . For more details please see separate cardiac stress test report. FINDINGS: QUALITY OF STUDY: Good. PERFUSION DEFECT: None. LOCATION: N/A SIZE: N/A. SEVERITY: N/A. TYPE: N/A. WALL MOTION: Normal. LV SIZE: Normal. 117 mL. TID / TCD: None; 0.9 LVEF: Normal. Calculated EF 69%. SUMMARY: Myocardial perfusion imaging study is NORMAL. CONCLUSION: 1. No reversible ischemia 2. Pending exercise test Dictated by: Jack Walker MD on 07/17/2023 at 14:59 Approved by: Jack Walker MD on 07/17/2023 at 15:01
--- NOTE | 2023-07-17 | PCN_ITS ---
CARDIAC STRESS TEST Requesting Physician: Aniya Hill M.D. Procedure Date: 07/17/2023 PERFORMING PROVIDER: Columba Cannon M.D. INDICATION: ASHD, pre-op. STRESS TEST PROTOCOL: Lexiscan myocardial perfusion imaging. Resting heart rate: 46 beats per minute. Max heart rate: 62 beats per minute. Blood pressure, restin/66 Blood pressure, maximum: 136/62 Symptoms: No chest pain. Arrhythmias: None observed during test. CONCLUSIONS: 1. Baseline EKG demonstrates sinus bradycardia with left bundle branch block. 2. EKG is uninterpretable for ischemia given left bundle branch block at baseline. 3. Please refer to separately performed and reported nuclear myocardial perfusion imaging. [facility]
--- OUTSIDE RECORDS SUMMARY | 2023-07-17 06:12 | XMS_ITS | CCD ---
Author Name Unknown Address [address] [place] [address] Organization [facility] Care Team Providers Care Porter Sample Case Name Role Phone PHYSICIAN, DEFAULT Unavailable Unavailable PHYSICIAN, DEFAULT Unavailable Unavailable LEXI FLORES Admitting Unavailable LEXI FLORES Attending Unavailable ADAMARIS, DR AMANUEL Lemus Consulting Unavailable MCKINLEY, DR ADAN Primary Care Unavailable MELISSA DECKER Consulting Unavailable MCKINLEY, DR ADAN Admitting Unavailable MCKINLEY, DR ADAN Primary Care Unavailable MCKINLEY, DR ADAN Consulting Unavailable MCKINLEY, DR ADAN Attending Unavailable MD Karen Sen Primary Care Provider [phone] DO Pal Fernandez Attending Provider [phone] Karen Sen Primary Care Provider MD Karen Sen Primary Care Provider MD Michael Chery Attending Provider Pal Fernandez Attending Unavailable Karen Sen Primary Care Unavailable Pal Fernandez Admitting Unavailable Michael Chery Admitting Unavailable Michael Chery Attending Unavailable Karen Sen M Primary Care Unavailable Karen Sen Primary Care Provider Karen Sen MD Primary Care Provider KAREN SEN Primary Care Unavailable KAREN SEN Referring Unavailable TAMANNA GORDON Attending Unavailable TAMANNA GORDON Referring Unavailable KAREN SEN Primary Care Unavailable KAREN SEN Primary Care Unavailable CHARI COSTA Attending Unavailable TERRA ANAYA Attending Unavailable MEHRDAD MOTA Attending Unavailable Bran COYLE Attending Unavailable Bran COYLE Attending Unavailable NILL, Bran R Attending Unavailable Allergies Allergy Classification Reported Allergen(s) Allergy Type Date of Onset Reaction(s) Facility (1 source) Aspirin Drug Allergy 6 [facility] Repository (1 source) NSAIDs; Translations: [NSAIDs] Propensity to adverse reactions (disorder) [facility] Repository (1 source) No Known Medication Allergies; Translations: [No Known Medication Allergies] Propensity to adverse reactions (disorder) [facility] Repository Medications Completed/Discontinued Medications Medication Drug Class(es) Dates Sig (Normalized) Sig (Original) aspirin 81 mg delayed release oral tablet (3 sources) Platelet Aggregation Inhibitor, Nonsteroidal Anti-inflammatory Drug take 1 tablet by mouth once daily aspirin, enteric coated (ASPIRIN, ENTERIC COATED) 81 mg EC tablet Take 81 mg by mouth once daily. 0 Active Comment on above: Take 81 mg by mouth once daily. atorvastatin 80 mg oral tablet (3 sources) HMG-CoA Reductase Inhibitor atorvastatin (LIPITO R) 80 mg tablet Take 40 mg by mouth once daily. 0 Active Comment on above: Take 40 mg by mouth once daily. cetirizine hydrochloride 10 mg oral tablet (3 sources) Histamine-1 Receptor Antagonist take 1 tablet by mouth once daily cetirizine (ZYRTEC) 10 mg tablet Take 10 mg by mouth once daily. 0 Active Comment on above: Take 10 mg by mouth once daily. cholecalciferol 0.125 mg oral tablet (3 sources) Vitamin D take 1 tablet by mouth once daily cholecalciferol (VITAMIN D-3) 5,000 unit tab Take 5,000 Units by mouth once daily. 0 Active Comment on above: Take 5,000 Units by mouth once daily. clopidogrel 75 mg oral tablet (3 sources) P2Y12 Platelet Inhibitor take 1 tablet by mouth once daily clopidogrel (PLAVIX) 75 mg tablet Take 75 mg by mouth once daily. 0 Active Comment on above: Take 75 mg by mouth once daily. 120 actuat fluticasone propionate 0.11 mg/actuat metered dose inhaler (3 sources) Corticosteroid fluticasone (VIVIANA VENT) 110 mcg/actuation inhaler Inhale 1 Puff as instructed as needed. 0 Active Comment on above: Inhale 1 Puff as ins tructed as needed. hydrALAZINE hydrochloride 25 mg oral tablet (3 sources) Arteriolar Vasodilator take 1 tablet by mouth twice daily hydrALAZINE (APRESOLINE) 25 mg tablet Take 25 mg by mouth twice daily. 0 Active Comment on above: Take 25 mg by mouth twice daily. hydroCHLOROthiazide 25 mg oral tablet (3 sources) Thiazide Diuretic take 1 tablet by mouth once daily hydroCHLOROthiazide (HYDRODIURIL, ESIDRIX) 25 mg tablet Take 25 mg by mouth once daily. 0 Active Comment on above: Take 25 mg by mouth once daily. meloxicam 15 mg oral tablet (3 sources) Nonsteroidal Anti-inflammatory Drug meloxicam (MOBIC) 15 mg tablet Take 15 mg by mouth as needed. prn 0 Active Comment on above: Take 15 mg by mouth as needed. prn metoprolol tartrate 25 mg oral tablet (3 sources) beta-Adrenergic Tam metoprolol tartrate, short acting, (LOPRESSOR) 25 mg tablet Take 12.5 mg by mouth twice daily. 0 Active Comment on above: Take 12.5 mg by mout h twice daily. tamsulosin hydrochloride 0.4 mg oral capsule (3 sources) alpha-Adrenergic Tam take 0.4 mg by mouth once daily tamsulosin ER (FLOMAX) 0.4 mg Take 0.4 mg by mouth once daily. 0 Active Comment on above: Take 0.4 mg by mouth once daily. Problems Active Problems Problem Classification Problem Date Documented Date Episodic/Chronic Coagulation and hemorrhagic disorders (3 sources) Thrombocytopenic disorder; Translations: [Thrombocytopenia, unspecified] Onset: 08-26-2014 08-26-2014 Chronic Coronary atherosclerosis and other heart disease (5 sources) Coronary arteriosclerosis; Translations: [Atherosclerotic heart disease of [place] coronary artery without angina pectoris] Onset: 06-21-2016 07-12-2021 Chronic E Codes: Cut/pierceb (1 source) Contact with sharp glass, initial encounter; Translations: [CONTACT W/SHARP GLASS INITIAL ENC] Onset: 02-09-2022 Episodic Essential hypertension (5 sources) Hypertensive disorder; Translations: [Essential (primary) hypertension] Onset: 06-21-2016 07-12-2021 Chronic Hyperplasia of prostate (3 sources) Benign prostatic hyperplasia; Translations: [Benign prostatic hyperplasia without lower urinary tract symptoms] Onset: 06-21-2016 07-12-2021 Chronic Immunizations and screening for infectious disease (1 source) Encounter for immunization; Translations: [ENCOUNTER FOR IMMUNIZATION] Onset: 02-09-2022 Episodic Occlusion or stenosis of precerebral arteries (8 sources) Carotid artery stenosis; Translations: [Occlusion and stenosis of unspecified carotid artery] Onset: 06-20-2016 07-12-2021 Chronic Open wounds of extremities (4 sources) Laceration without foreign body, right lower leg, initial encounter; Translations: [LACERATION W/O FB RT LOW LEG INIT] Onset: 02-07-2022 Episodic Other aftercare (1 source) Other termite treater (current) drug therapy; Translations: [OTH DIAL EQUIPMENT ENGINEER CURRENT DRUG THERAPY] Onset: 02-09-2022 Episodic Other bone disease and musculoskeletal deformities (1 source) Disorder of bone, unspecified; Translations: [Disorder of bone, unspecified] Onset: 05-29-2022 Episodic Screening and history of mental health and substance abuse codes (1 source) Personal history of nicotine dependence; Translations: [PERSONAL HISTORY OF NICOTINE DEPEND] Onset: 02-09-2022 Episodic Unclassified (3 sources) CONTACT W/AND (SUSP) EXPOS COVID-19; Translations: [CONTACT W/AND (SUSP) EXPOS COVID-19] Onset: 02-01-2022 Past or Other Problems Problem Classification Problem Date Documented Date Episodic/Chronic Abdominal hernia (2 sources) Inguinal hernia; Translations: [Unilateral inguinal hernia, without obstruction or gangrene, not specified as recurrent] Onset: 02-13-2022 Episodic Abdominal pain (1 source) Left lower quadrant pain; Translations: [Left lower quadrant pain] Onset: 02-13-2022 Episodic Other circulatory disease (3 sources) H/O: cardiovascular disease; Translations: [Personal history of other diseases of the circulatory system] Onset: 07-06-2017 07-06-2017 Episodic Unclassified (1 source) CONTACT W/AND (SUSP) EXPOS COVID-19; Translations: [CONTACT W/AND (SUSP) EXPOS COVID-19] Onset: 01-31-2022 Results Test Name Value Interpretation Reference Range Facility Operative Reporton 3 Operative Report [id number]#1.00TIFF [facility] Formson 04-24-2023 Forms [id number]#1.00TIFF [facility] Lab Reportson 04-17-2023 Lab Reports [id number]#1.00CD:127 Normal [facility] Consent for Procedure/Surger yon 04-12-2023 Consent for Procedure/Surgery [id number]#1.00CD:127 Normal [facility] Facesheeton 04-12-2023 Facesheet [id number]#1.00CD:127 Normal [facility] Consultation Noteon 04-11-20 Consultation Note [id number]#1.00CD:127 Normal [facility] General Surgery Office/Clini c Noteon 04-11-2023 General Surgery Office/Clinic Note Chief Complaint post operative follow up HPI Staff 26 day post operative follow up post EGD completed while in-patient at [facility]. Taking Carafate and Protonix as prescribed. History of Present Illness 3 1/2 weeks s/p EGD as inpatient for prepyloric ulcer with UGI bleed; likely due to Mobic; doing well, less fatigue, no melena or abd pain; on Protonix and carafate; no asa, on Plavix; repeat h/h 2 days ago, pending. Review of Systems PHQ Score Initial Depression Screen Score: 0 ROS - Provider Constitutional: no fever, no sweats, no weight loss. Eyes: no glasses, no blurred vision, no visual loss. ENMT: no dentures, no hoarseness, no swallowing difficulties, no hearing loss, no ear infection(s), no nose bleeds. Cardiovascular: normal blood pressure, no chest pain, regular heartbeat, no heart murmur. Respiratory: no shortness of breath, no cough, no asthma, no wheezing. Gastrointestinal: no nausea, no vomiting, no diarrhea, no constipation, no blood in stool, no change in bowel habits, no abdominal pain, no hepatitis. Genitourinary: no kidney stones, no urine infection, no dysuria. Musculoskeletal: no pain, no weakness. Skin: no changing moles, no rash, no skin lumps. Neurologic: no seizures, no epilepsy, no headache. Psychiatric: no emotional or psychiatric problem. Heme/Lymph: no bleeding problems, no anemia, no blood clots, no transfusions. Allergy/Immunologic: no swollen lymph nodes/glands, no IV drug abuse. Other: Additional ROS info: Except as noted in the above Review of Systems and in the History of Present Illness, all other systems have been reviewed and are negative or noncontributory. Physical Exam HEENT: normal conjunctiva, sclera clear, no scleral icterus, EOM intact, PERRLA, oral mucosa moist without lesions. Neck: trachea midline, no mass, symmetric, no thyromegaly or nodules, no adenopathy Respiratory: lungs CTA, respirations non labored. Cardiovascular: regular rate and rhythm, no murmur, no pedal edema or varicosities. Gastrointestinal: soft, non distended, no tenderness, no masses, no palpable hernias, diastasis recti no, no hepatosplenomegaly; normal bs Lymphatic: no cervical adenopathy, no supraclavicular adenopathy keletal: normal gait, digits and nails without infection, nodes, cyanosis, clubbing. Skin: no rashes, no lesions, no ulcers, no subcutaneous nodules, induration. multiple ecchymoses bilateral upper extremities. Psychiatric/Neuro: oriented to time, place, person, judgement normal, affect appropriate for age, insight intact, no focal deficits. Tests: , review of old records completed , Discussed surgical options, risks, and possible complications with patient. Assessment/Plan 1. Acute gastric ulcer with hemorrhage (K25.0: Acute gastric ulcer with hemorrhage) continue Protonix and Carafate, no NSAIDS; f/u EGD in 1 month to document healing; call sooner if problems/questions. Follow-up No qualifying data available Problem List/Past Medical History Ongoing Anemia Benign essential hypertension Benign prostatic hyperplasia Bilateral age-related nuclear cataracts Carotid artery stenosis Coronary atherosclerosis Gastric ulcer with hemorrhage but without obstruction History of GI bleed Hyperlipidemia Splenomegaly Thrombocytopenic disorder Historical No qualifying data Procedure/Surgical History EGD - Esophagogastroduodenoscopy (03/21/2023), Arthroplasty of left hip, Arthroplasty of right hip, CABG - Coronary artery bypass graft, Carotid endarterectomy, Cholecystectomy, Colonoscopy, Colonoscopy, History of lumbar spine surgery, Repair of left inguinal hernia. Medications atorvastatin, 40 mg, Oral, Daily Carafate 1 gram Tab, 1 gm= 1 tab(s), Oral, QIDACHS clopidogrel 75 mg Tab, 75 mg= 1 tab(s), Oral, Daily fluticasone Nasal 0.05 mg/inh [place] hydrALAZINE 25 mg Tab, 25 mg= 1 tab(s), Oral, BID hydrochlorothiazide 25 mg Tab, 25 mg= 1 tab(s), Oral, Daily Metoprolol tartrate 25 mg Tab, 12.5 mg= 0.5 tab(s), Oral, BID Protonix 40 mg Tab-DR, 40 mg= 1 tab(s), Oral, BID sildenafil 100 mg Tab torsemide 10 mg Tab, 10 mg= 1 tab(s), Oral, Daily Allergies NSAIDs (GI bleeding) Social History Alcohol Past, Beer, Daily, 04/11/2023 Substance Abuse - Denies Substance Abuse, 04/11/2023 Tobacco Former smoker, quit more than 30 days ago Tobacco Use:. Never Smokeless Tobacco Use:. Cigarettes, 0.5 per day. Started age 18.0 Years. Stopped age 27 Years., 04/11/2023 Family History Family history is negative Immunizations Vaccine Date Status Comments SARS-CoV-2 (COVID-19) mRNA BNT-162b2 vax 05/30/2021 Recorded 2023-03-26: [id number] SARS-CoV-2 (COVID-19) mRNA BNT-162b2 vax 10/02/2020 Recorded SARS-CoV-2 (COVID-19) mRNA BNT-162b2 vax 09/11/2020 Recorded Normal [facility] Comment on above: Result Comment: Elec tronically Signed By: LEONIDES BRISCOE, Bran Lemus\alia\Date and Time Signed: 04/11/23 16:56 EDT Office Visiton 04-10-2023 Follow-up visit [id number] Steve Savage 1945 M Date Provider Department Center 04/10/2023 [id number] Family History Problem Relation Age of Onset Cancer Mother Coronary artery disease Father Hypertension Father Family Status - Relation Status Age at Mother Father Level of Service:93267 [place] OFFICE/OUTPATIENT ESTABLISHED LOW MDM 20-29 MIN Normal [facility] Operative Reporton 3 Operative Report [id number]#1.00CD:127 [facility] Consultation Noteon 03-22-20 23 Consultation Note [id number]#1.00CD:127 [facility] Consultation Note [id number]#1.00CD:127 [facility] Lab Reportson 03-22-2023 Lab Reports [id number]#1.00CD:127 [facility] Lab Reports [id number]#1.00CD:127 [facility] Operative Reporton 3 Operative Report [id number]#1.00CD:127 [facility] CNOVon 02-23-2023 CNOV Office Visit (VASSAV ) NANCY SAVAGE ([id number]) 1945 M Date Time Provider Department 02/23/23 10:00 AM TAMANNA GORDON During your visit today, we recorded the following information about you: Pulse Blood pressure 48/minute 120/67 Tamanna Gordon MD 02/23/2023 10:22 AM Signed Follow up Visit Mr. Nancy Savage is S/P Left Carotid Endarectomy - date 06/20/16 SUBJECTIVE: Since his last visit, no complaints. No hospitalizations. He gets pain injections in the c spine. EXAM: Left Neck Incision: Clean dry and well healed. HEMOGLOBIN (g/dL) Date Value 06/21/2016 10.5 HEMATOCRIT (%) Date Value 06/21/2016 32.6 WBC (k/uL) Date Value 06/21/2016 8.48 PLATELET COUNT (k/uL) Date Value 06/21/2016 130 IMPRESSION: doing Well. Continue plavix, baby asa, statin. PLAN: Carotid Duplex in 24 months. Bin Gordon MD Referring Provider: KAREN SEN [[id number]] Allergies As of Date: 02/23/2023 (No Known Allergies) Date Reviewed: 02/23/2023 Reviewed by: Verenice Hylton RN - Fully Assessed Reason for Visit: Follow Up [171] Primary Visit Diagnosis:Internal carotid artery stenosis, bilateral [I65.23] Order(s): CAROTID ARTERIES [facility] [[id number]] Order #: [id number] FUTURE Prescriptions as of 02/23/2023 - hydroCHLOROthiazide (HYDRODIURIL, ESIDRIX) 25 mg tablet Take 25 mg by mouth once daily. - cholecalciferol (VITAMIN D-3) 5,000 unit tab Take 5,000 Units by mouth once daily. - aspirin, enteric coated (ASPIRIN, ENTERIC COATED) 81 mg EC tablet Take 81 mg by mouth once daily. - tamsulosin ER (FLOMAX) 0.4 mg Take 0.4 mg by mouth once daily. - hydrALAZINE (APRESOLINE) 25 mg tablet Take 25 mg by mouth twice daily. - meloxicam (MOBIC) 15 mg tablet Take 15 mg by mouth as needed. prn - metoprolol tartrate, short acting, (LOPRESSOR) 25 mg tablet Take 12.5 mg by mouth twice daily. - clopidogrel (PLAVIX) 75 mg tablet Take 75 mg by mouth once daily. - atorvastatin (LIPITOR) 80 mg tablet Take 40 mg by mouth once daily. - fluticasone (FLOVENT) 110 mcg/actuation inhaler Inhale 1 Puff as instructed as needed. - cetirizine (ZYRTEC) 10 mg tablet Take 10 mg by mouth once daily. Problem List As Of Date 02/23/2023 Noted Resolved Thrombocytopenia (HCC) [D69.6] 08/26/2014 Carotid artery stenosis [I65.29] 06/20/2016 BPH (benign prostatic hyperplasia) [N40.0] 06/21/2016 HTN (hypertension) [I10] 06/21/2016 Urinary retention [R33.9] 06/21/2016 07/31/2018 CAD (coronary artery disease) [I25.10] 06/21/2016 H/O carotid stenosis [Z86.79] 07/06/2017 Disposition: Return in about 2 years (around 02/23/2025) for carotid duplex. Follow-up and Disposition History for Encounter Date Provider Department Center 02/23/2023 [id number] GORDONOVASSAV REJ Encounter Status:Closed by TAMANNA GORDON on 02/23/23 Normal [facility] US [facility]ID [facility]ERIES [facility] 02-23-2023 US CAROTID ARTERIES [facility] Non-Invasive Vascular Laboratory [facility] Carotid Duplex Bilateral/Complete Date of service/time: 02/23/2023 9:03:36 AM Name: MR. NANCY SAVAGE Date of : 1945 Age: 78 years Gender: M Clinical Indication Follow-up study on a patient with known carotid disease. Status post left common carotid and internal carotid endarterectomy 06/20/2016 . TECHNIQUE -------- A carotid duplex ultrasound examination was performed, including grayscale imaging and color Doppler and spectral Doppler examination of the below mentioned arteries. FINDINGS -------- RIGHT SIDE Common carotid artery: Origin: PSV: 93 cm/s. EDV: 16 cm/s. Proximal: PSV: 103 cm/s. EDV: 17 cm/s. Mid: PSV: 88 cm/s. EDV: 16 cm/s. Distal: PSV: 90 cm/s. EDV: 15 cm/s. Internal carotid artery: Origin: PSV: 95 cm/s. EDV: 19 cm/s. Proximal: PSV: 66 cm/s. EDV: 23 cm/s. Mid: PSV: 93 cm/s. EDV: 27 cm/s. Distal: PSV: 77 cm/s. EDV: 26 cm/s. Mild heterogeneous plaque at origin. ICA/CCA Ratio: 1.1 External carotid artery: Origin: PSV: 112 cm/s. EDV: 12 cm/s. Subclavian artery: Origin: PSV: 187 cm/s. EDV: 0 cm/s. Innominate artery: PSV: 164 cm/s. EDV: 0 cm/s. Vertebral artery: Proximal: PSV: 49 cm/s. EDV: 12 cm/s. LEFT SIDE Common carotid artery: Proximal: PSV: 89 cm/s. EDV: 24 cm/s. Mid: PSV: 84 cm/s. EDV: 21 cm/s. Distal: PSV: 76 cm/s. EDV: 19 cm/s. Internal carotid artery: Origin: PSV: 59 cm/s. EDV: 19 cm/s. Proximal: PSV: 72 cm/s. EDV: 23 cm/s. Mid: PSV: 82 cm/s. EDV: 31 cm/s. Distal: PSV: 82 cm/s. EDV: 31 cm/s. Mild heterogeneous plaque at origin. ICA/CCA Ratio: 1.1 External carotid artery: Origin: PSV: 140 cm/s. EDV: 19 cm/s. Subclavian artery: Proximal: PSV: 194 cm/s. EDV: 0 cm/s. Vertebral artery: Proximal: PSV: 45 cm/s. EDV: 17 cm/s. IMPRESSION Compared to prior study of 02/04/2021, no change. RIGHT SIDE Internal carotid artery: 20-39% stenosis. Vertebral artery: Patent and antegrade flow noted. Innominate artery: Patent. Subclavian artery: Patent. LEFT SIDE Common carotid artery: Endarterectomy patch at distal measuring 1.16 cm. Internal carotid artery: 20-39% stenosis. Vertebral artery: Patent and antegrade flow noted. Subclavian artery: Patent. Technologist: Phuong Méndez T Ordering physician: TAMANNA GORDON Interpreting physician: Vicenta Almeida MD Final CC [facility] Medical Image : [id number] See Link below for Image Normal [facility] THERESA Antinuclear Antibodieson 05-29-2022 Antinuclear Abs, IFA Positive Critically abnormal . [facility] Comment on above: Result Comment: Nega tive <1:80 Borderline 1:80 Positive >1:80 Performed By: #### E SR, PTH #### [facility] [address] [place] [address] [place] #### THERESA #### [facility] , Homogeneous Pattern 1:160 High . [facility] Comment on above: Result Comment: ICAP nomenclature: AC-1 Performed By: #### E SR, PTH #### [facility] [address] [place] [address] [place] #### THERESA #### [facility] , Note 1 Normal . [facility] Comment on above: Result Comment: For more information about Hep-2 cell patterns use ANApatterns.org, the official website for the International Consensus on Antinuclear Antibody (THERESA) Patterns (ICAP). A positive THERESA result may occur in healthy individuals (low titer) or be associated with a variety of diseases. See interpretation chart which is not all inclusive: Pattern Antigen Detected Suggested Disease Association Homogeneous DNA(ds,ss), SLE - High titers Nucleosomes, Histones Drug-induced SLE Speckled Sm, QUALITY ASSURANCE QA LAB TECHNICIAN, SCL-70, SLE,MCTD,PSS (diffuse form), SS-A/SS-B Sjogrens Nucleolar SCL-70, PM-1/SCL High titers Scleroderma, PM/DM Centromere Centromere PSS (limited form) w/Crest syndrome variable Nuclear Dot Sp100,c28-jxvand Primary Biliary Cirrhosis Nuclear GP210, Primary Biliary Cirrhosis Membrane vika A,B,C Performed at: - [facility] [id number] Economist Research Assistant: Spencer Ibarra PhD, Phone: [phone] PERFORMED BY: [facility] [place] [address] PATHOLOGIST INVOICE MACHINE OPERATOR SYLVAIN ZAPATA M.D. Performed By: #### Dunia SR, PTH #### [facility] [address] [place] [address] [place] #### THERESA #### [facility] , Erythrocyte Sedimentation Ra cody 05-29-2022 ESR (Bld) [Velocity] 5 mm/h Normal 0- [facility] Comment on above: Result Comment: PERF ORMED BY: [place] [address] PATHOLOGIST INVOICE MACHINE OPERATOR SYLVAIN ZAPATA M.D. Performed By: #### E SR, PTH #### [place] [address] [place] #### THERESA #### [facility] , Erythrocyte sedimentation ra te by Photometric methodOrdered By: Michael Chery on 05-29-2022 ESR Photometric method (Bld) [Velocity] 5 mm/hr 0- [facility] Parathyroid Hormone Intacton 05-29-2022 Parathyroid Hormone Intact 79.4 pg/mL Normal [facility] Comment on above: Result Comment: PERF ORMED BY: [place] [address] PATHOLOGIST INVOICE MACHINE OPERATOR SYLVAIN ZAPATA M.D. Performed By: #### E SR, PTH #### [place] [address] [place] #### THERESA #### [facility] , Serum or plasma intact parat hyroid hormone measurement (mass/volume)Ordered By: Michael Chery on 05-29-2022 Parathyrin.intact [Mass/Vol] 79.4 pg/mL [facility] XR Hand Complete Left*on XR Hand Complete Left* CLINICAL HISTORY: Bilateral hand pain. COMPARISON: None. RESULT: Bilateral hands: No acute fracture. No dislocation. Degenerative changes throughout the hands especially advanced involving the thumb CMC joint, triscaphe joint, third digit MCP joint. Also scattered mild degenerative changes involving the IP joints. No distinct erosions. Soft tissues unremarkable. IMPRESSION: Osteoarthritis bilateral hands. Report reported and signed by Chaitanya Ashton on 05/29/20221647 Normal [place] Chief Projectionist XR Hand Complete Right*on XR Hand Complete Right* Refer to concurrent left hand radiograph dictation. Report reported and signed by Chaitanya Ashton on 05/29/2022 1648 Normal [facility] Chief Projectionist Follow-Upon 05-24-2022 Follow-Up [id number] Steve Savage 1945 M Date Provider Department Center 05/24/2022 Cristiano-TERRA ANAYA CARD [facility] Family History Problem Relation Age of Onset Cancer Mother Coronary artery disease Father Hypertension Father Family Status - Relation Status Age at Mother Father Level of Service:19707 [place] OFFICE/OUTPATIENT ESTABLISHED MOD MDM 30-39 MIN Reason for Visit and Comments: carotid artery stenosis [Other] Coronary Artery Disease [187] Peripheral Vascular Disease [458] Normal [facility] 36on 05-15-2022 36 Approving, but needs appt for additional refills. Normal [facility] CNOVon 05-12-2022 CNOV Office Visit (NEURAV ) NANCY SAVAGE ([id number]) 1945 M Date Time Provider Department 05/12/22 12:00 PM CHARI COSTA During your visit today, we recorded the following information about you: Pulse Blood pressure 61/minute 149/64 Chari Costa MD 05/12/2022 12:55 PM Signed Neurology Clinic - May 12, 2022 Reason for visit: Mr. Savage is referred by SELF for my opinion regarding left femoral neuropathy. My final recommendation will be communicated back to the requesting physician by way of shared medical record or letter. HISTORY OF PRESENT ILLNESS: Patient is a 77 year old, right-handed, White, male with history of arthritis, BPH, CAD, cholelithiasis, HTN. History gathered from patient and electronic medical records. He had L hernia repair in 2017. He had no issues post op - he had no weakness - he remained physically post-op - fixing cars, mowing the lawn, repairing lawn mowers, correcting/leveling tombstones. He always had issues with walking (walks with a limp) due to LBP and h/o back surgeries(L4-5 laminectomies); has residual R foot drop. Approximately 9-12 months ago, he started having a L groin pain. He noticed that he had a bulge in the L groin(depending on what he eats) which causes pain. If he pushes the bulge in or uses the hernia belt, the pain is better. 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 Fernandez reviewed, and he thought it was post op hematoma and did not recommend surgery. He has reduced his physical activity and L groin pain is improved. He is here to evaluate for femoral neuropathy. PAST MEDICAL HISTORY Diagnosis Date Arthritis BPH (benign prostatic hyperplasia) CAD (coronary artery disease) Cholelithiasis Hypertension PAST SURGICAL HISTORY Procedure Laterality Date BACK SURGERY HX BYPASS GRAFT OTHR,CAROTID Left 06/20/2016 Carotid Endarectomy COLONOSCOPY HERNIA REPAIR HX PAST SURGICAL HISTORY OF 01/02/2016 Open heart / 4 vessel[facility] REMOVAL GALLBLADDER TOTAL HIP REPLACEMENT MEDICATIONS: Current Outpatient Medications Medication Sig Dispense Refill aspirin, enteric coated (ASPIRIN, ENTERIC COATED) 81 mg EC tablet Take 81 mg by mouth once daily. tamsulosin ER (FLOMAX) 0.4 mg Take 0.4 mg by mouth once daily. (Patient not taking: Reported on 02/04/2021 ) hydrALAZINE (APRESOLINE) 25 mg tablet Take 25 mg by mouth twice daily. meloxicam (MOBIC) 15 mg tablet Take 15 mg by mouth once daily. prn metoprolol tartrate, short acting, (LOPRESSOR) 25 mg tablet Take 12.5 mg by mouth twice daily. clopidogrel (PLAVIX) 75 mg tablet Take 75 mg by mouth once daily. atorvastatin (LIPITOR) 80 mg tablet Take 40 mg by mouth once daily. fluticasone (FLOVENT) 110 mcg/actuation inhaler Inhale 1 Puff as instructed as needed. cetirizine (ZYRTEC) 10 mg tablet Take 10 mg by mouth once daily. (Patient not taking: Reported on 02/04/2021 ) No current facility-administered medications for this visit. ALLERGY: ALLERGIES No Known Allergies FAMILY HISTORY Problem Relation Age of Onset Cancer Mother Heart Mother Social History Tobacco Use Smoking status: Never Smokeless tobacco: Never Substance Use Topics Alcohol use: Yes Drug use: No DATA: Radiology: Laboratory: Other: REVIEW OF SYSTEMS: per HPI General: no wt. loss/gain, change in appetite, fever, malaise HEENT: no headache, problems with vision, hearing Cardiac: no chest pain, palpitation Respiratory: no shortness of breath, cough, cold GI: (+) change in consistency in bowels (loose to solid), (-)abdominal pain : no incontinence, frequency, urgency Musculoskeletal: no joint/muscle pain, no swelling Skin: no rash Endocrine: no cold/hot intolerance, thyroid, diabetes Immunologic: no known immunologic disorders Neurologic/Psychiatric: no other known neurologic or psychiatric problems PHYSICAL EXAM: BP 149/64 Pulse 61 HEENT: atraumatic, normocephalic Neck: supple Extremities: good pulses NEUROLOGICAL EXAM: MSE: Awake, alert, oriented x 3, language intact, attention and concentration normal CN: pupils are equal and reactive to light, funduscopy: clear disc margins, EOMI, no nystagmus, V1-V3 intact, no facial weakness, normal hearing to communication, good elevation of soft palate, tongue midline with good strength, no dysarthria Motor: Gait: (+) steppage gait, able to put weight on toes/heels with difficulty on tandem No pronator drift, rapid finger movements are symmetrical Normal tone and bulk No adventitious movements Power: Right Left Neck flexion 5/5 Neck extension 5/5 Trapezius 5/5 5/5 Deltoids 5/5 5/5 Biceps 5/5 5/5 Triceps 5/5 5/5 Wrist Ext 5/5 5/5 Wrist Flex 5/5 5 (more content not included)... Normal [facility] Blood Urea Nitrogenon 2021 Urea nitrogen [Mass/Vol] 9 mg/dL Normal 04-07 [facility] Comment on above: Performed By: #### C REAT, BUN #### [facility] [address] pelvis w conon 02-13-2022 CT pelvis w con [facility] [place] [address] CT Scan Report Signed Patient: Nancy Savage MR#: [id number] : 1945 Acct:[id number] Age/Sex: 76 / M ADM Date: 02/13/22 Loc: CT Room: Type: [facility] Attending Dr: Pal Fernandez DO Copies to: Pal Fernandez DO Ordering Provider: Pal Fernandez DO Date of Service: 02/13/22 CT/CT pelvis w con: further eval, poss. hernia;Right inguinal hernia;Left inguin CT PELVIS WITH INTRAVENOUS CONTRAST: CLINICAL HISTORY: Left lower quadrant/groin pain. COMPARISON: None TECHNIQUE: Spiral images were obtained through the pelvis following the administration of oral and intravenous contrast. This CT exam was performed using one or more following dose reduction techniques: Automated exposure control, adjustment of the mA and/or kV according to patient size, or use of iterative reconstruction technique. FINDINGS: Evaluation of the inguinal regions is suboptimal due to streak artifact from the patient's bilateral hip prostheses. A fat filled left-sided inguinal hernia appears to be present extending into the visualized scrotum. No surrounding inflammatory changes or fluid is noted. Visualized intrapelvic contents imaging no acute findings. 4 mm left renal calculus. Osseous structures demonstrate degenerative change. CT/CT pelvis w con IMPRESSION: SUBOPTIMAL STUDY. THERE APPEARS TO BE A LEFT-SIDED FAT FILLED INGUINAL HERNIA EXTENDING INTO THE VISUALIZED SCROTUM. LEFT NEPHROLITHIASIS. Impression dictated by: Mayo Hanna Jr., D.O.02/13/2022 1:20 PM Dictation Location: [place] [address] Transcribed By: [facility] 02/13/22 1320 Dictated By: Mayo Hanna Jr, DO 02/13/22 1316 Signed By: 02/13/22 1320 Normal [facility] Creatinineon 02-13-2022 Creatinine [Mass/Vol] 0.97 mg/dL Normal 0.64-1.27 [facility] Comment on above: Performed By: #### C REAT, BUN #### [facility] [address] [place] [address] [place] Estimated GFR ( Zahraa > 60 Normal [facility] Comment on above: Result Comment: GFR estimated reference range: According to KDOQI guidelines, <60 ml/min/1.73m2 is sufficient to diagnose a patient with chronic kidney disease. PERFORMED BY: [place] [address] PATHOLOGIST INVOICE MACHINE OPERATOR SYLVAIN ZAPATA M.D. Performed By: #### C REAT, BUN #### [facility] [address] Estimated GFR (Non- Am > 60 Normal [facility] Comment on above: Performed By: #### C REAT, BUN #### [facility] [address] Creatinine and Glomerular fi ltration rate.predicted panel (S/P/Bld)Ordered By: Pal Fernandez on 02-13-2022 Creatinine [Mass/Vol] 0.97 mg/dL 0.64-1.27 [facility] Estimated glomerular filtrat ion rate (GFR) non- AmericanOrdered By: Pal Fernandez on 02-13-2022 GFR/1.73 sq M.predicted among non-blacks MDRD (S/P/Bld) [Vol rate/Area] > 60 mL/Min [facility] No Panel InformationOrdered By: Pal Fernandez on 02-13-2022 Estimated GFR () > 60 mL/Min [facility] Comment on above: GFR estimated refere nce range: According to KDOQI guidelines, <60 ml/min/1.73m2 is sufficient to diagnose a patient with chronic kidney disease. Pharmacy Creatinine Clearance (Chem N/A [facility] Serum or plasma urea nitroge n measurement (mass/volume)Ordered By: Pal Fernandez on 02-13-2022 Urea nitrogen [Mass/Vol] 9 mg/dL 04-07 [facility] Covid-19 PCR (CVDTBH)on 01-13 SARS-CoV-2 (COVID-19) RNA YURIDIA+probe Ql (Unsp spec) Detected Critically abnormal NOT DETECTED [facility] Comment on above: Result Comment: This test is not yet approved or cleared by the [place] FDA. When there are no FDA-approved or cleared tests available, and other criteria are met, FDA can make tests available under an emergency access mechanism called an Emergency Use Authorization (EUA). The EUA for this test is supported by the Electrical/Instrument Technician of Health and Human Service's declaration that circumstances exist to justify the emergency use of in vitro diagnostics for the detection and/or diagnosis of the virus that causes COVID-19. This EUA will remain in effect for the duration of the COVID-19 declaration justifying emergency of IVDs, unless it is terminated or revoked by the FDA (after which the test may no longer be used). Performed By: #### [facility] #### [facility] [address] [place] [address] Dr. Antonio Dave Vital Signs Date Time Vital Sign Value Performing Clinician Grace marinelli 02-23-2023 10:10-0400 Diastolic blood pressure 67 mm[Hg] Tamanna Gordon MD Work Phone: [facility] 02-23-2023 10:10-0400 Heart rate 48 /min Tamanna Gordon MD Work Phone: [facility] 02-23-2023 10:10-0400 Systolic blood pressure 120 mm[Hg] Tamanna Gordon MD Work Phone: [facility] 05-12-2022 11:50-0400 Diastolic blood pressure 64 mm[Hg] Chari Costa MD Work Phone: [facility] 05-12-2022 11:50-0400 Heart rate 61 /min Chari Costa MD Work Phone: [facility] 05-12-2022 11:50-0400 Systolic blood pressure 149 mm[Hg] Chari Costa MD Work Phone: [facility] Encounters Encounter Date Encounter Type Care Provider Facility Start: 05-16-2023 End: 05-17-2023 ambulatory Bran COYLE Facility:CD:[id number] Start: 04-11-2023 End: 04-12-2023 ambulatory Bran R NILL Facility:[facility] Start: 04-10-2023 End: 04-12-2023 ambulatory MEHRDAD MOTA [facility] Start: 04-06-2023 ambulatory Bran IBARRAL Facility:[facility] Start: 03-21-2023 End: 03-23-2023 ambulatory Bran R NILL Facility::[id number] 97 Start: 02-23-2023 End: 02-23-2023 ambulatory KAREN HU MCKINLEY Facility:[facility] Start: 02-23-2023 End: 02-23-2023 Patient encounter procedure Tamanna Gordon MD Work Phone: Vascular Surgery Comment on above: Internal carotid art severo stenosis, bilateral (Primary Dx) Start: 12-29-2022 Orders Only Tamanna Gordon MD Work Phone: Vascular Surgery Comment on above: Bilateral carotid ar natalia stenosis (Primary Dx) Start: 05-29-2022 End: 05-29-2022 ambulatory Michael Chery Facility:[facility] Start: 05-29-2022 End: 05-29-2022 ambulatory MD Karen Sen Work Phone: [facility] Work Phone: Start: 05-29-2022 End: 05-29-2022 Patient encounter procedure MD Karen Sen Work Phone: [facility] [address] Start: 05-24-2022 End: 05-24-2022 ambulatory TERRA ANAYA [facility] Start: 05-12-2022 End: 05-12-2022 ambulatory KAREN SEN Facility:[facility] Start: 05-12-2022 End: 05-12-2022 Patient encounter procedure Chari Costa MD Work Phone: Neurology Comment on above: Unilateral inguinal hernia without obstruction or gangrene, recurrence not specified (Primary Dx) Start: 02-13-2022 End: 02-13-2022 ambulatory Pal Fernandez Facility:[facility] Start: 02-13-2022 End: 02-13-2022 Patient encounter procedure MD Karen Sen Work Phone: [facility] Scan [address] [place] Start: 02-07-2022 End: 02-07-2022 ambulatory LEXI FLORES Facility: Start: 01-31-2022 End: 01-31-[address] KAREN SEN Facility:[facility] Start: 10-02-2017 End: 10-03-2017 Ambulatory DEFAULT PHYSICIAN Facility:[facility] Procedures Date Procedure Procedure Detail Performing Clinician Start: 02-13-2022 CT of pelvis with contrast MD Karen Sen Work Phone: Start: 08-25-2021 Colonoscopy Chari Bahena i, MD Work Phone: Plan of Treatment Date Care Activity Detail Author Start: 02-23-2025 US CAROTID ARTERIES [facility] US CAROTID ARTERIES [facility] Vascular Lab Routine Internal carotid artery stenosis, bilateral Expected: 02/23/2025 [facility] Work Phone: Comment on above: Expected: 02/23/2025 Start: 02-24-2024 BP CONTROLLED (<130/80) BP CONTROLLE D (<130/80) [facility] Start: 03-16-2023 Influenza vaccination [facility] Start: 08-25-2022 Colonoscopy COLONOSCOPY [facility] Start: 08-25-2022 COLORECTAL CANCER SCREENING COLORECTAL CANCER SCREENING [facility] Start: 07-16-2022 ADVANCE DIRECTIVE DISCUSSION ADVANCE DIRECTIVE DISCUSSION [facility] Start: 07-16-2022 DEPRESSION ASSESSMENT DEPRESSION ASS ESSMENT [facility] Start: 05-29-2022 [facility] Start: 04-17-2022 DIABETES SCREEN DIABETES SCREEN [facility] Start: 03-16-2022 Influenza vaccination INFLUENZA (#1) [facility] Start: 07-25-2021 COVID-19 VACCINE (4 - Booster for Pfizer series) COVID-19 VACCINE (4 - Booster for Pfizer series) [facility] Start: 07-25-2021 COVID-19 VACCINE (4 - Pfizer series) COVID-19 VACCINE (4 - Pfizer series) [facility] Start: 07-16-2021 ADVANCE DIRECTIVE DISCUSSION ADVANCE DIRECTIVE DISCUSSION [facility] Start: 07-16-2021 DEPRESSION ASSESSMENT DEPRESSION ASS ESSMENT [facility] Start: 02-16-2012 PNEUMOCOCCAL: 65+ (1 - PCV) PNEUMOCOCCAL: 65+ (1 - PCV) [facility] Start: 1997 SHINGRIX VACCINE (1 of 2) SHINGRIX VACCINE (1 of 2) [facility] Start: 02-16-1992 COLOGUARD (FIT-DNA) COLOGUARD (FIT-D NA) [facility] Start: 02-16-[address] COLONOGRAPHY [facility] Start: 02-16-1992 FECAL OCCULT BLOOD FECAL OCCULT BLOO D [facility] Start: 02-16-1992 SIGMOIDOSCOPY SIGMOIDOSCOPY [facility] Start: 1982 LIPID SCREEN LIPID SCREEN [facility] Start: 1966 Urine microalbumin profile DTAP,TDAP,TD (1 - Tdap) [facility] Start: 1965 ANNUAL PCP TEAM ELEVATOR INSTALLER STORM DISEASE VISIT ANNUAL PCP TEAM CHRONIC DISEASE VISIT [facility] Start: 1965 BP CONTROLLED (<130/80) BP CONTROLLE D (<130/80) [facility] Start: 1965 Hepatitis B surface antibody level LDL CHOLESTEROL [facility] Start: 1965 HEPATITIS C SCREENING HEPATITIS C [facility] Homogenous nuclear A b pattern [Titer] in Serum [facility] Work Phone: Nuclear Ab [Titer] i n Serum [facility] Work Phone: End: 12-30-2023 US CAROTID ARTERIES [facility] US CAROTID ARTERIES [facility] Vascular Lab Routine Bilateral carotid artery stenosis 1 Occurrences starting 12/29/2022 until 12/30/2023 [facility] Work Phone: Comment on above: 1 Occurrences starti ng 12/29/2022 until 12/30[facility] P[facility] Date Payer Category Payer Self-pay [id number] 2022 Unknown [id number] 2021 Unknown 2011 Medicare MEDICARE MEDICAR E A AND B [id number] 2011-Present [phone] [place] [address] Medicare [id number] 1959 Medicare [id number] 1959 Unknown [id number] 1945 Unknown [id number] 93 1945 Unknown [id number] 93 1945 Unknown [id number] 27 1945 Unknown [id number] 27 1945 Unknown [id number] 27 1945 Unknown [id number] 27 1945 Unknown [id number] [facility] [id number] Unknown [id number] 31 Unknown [id number] 31 Social History Date Type Detail Facility Tobacco smoking stat [facility] Unknown if ever smoked [facility] Work Phone: Start: 1945 Sex Assigned At Male F [facility] Start: 08-26-2014 [facility] Start: 08-26-2014 Tobacco use and exposure Smokeless tobacco non-user [facility] Start: 02-04-2021 End: 02-23-2023 Alcohol intake Current drinker of alcohol (finding) [facility] Start: 1945 Sex Assigned At Not on file [facility] Start: 04-16-2018 End: 02-23-2023 History of Social function [facility] Start: 04-16-2018 End: 02-23-2023 Tobacco use panel [facility] Adult Depression Screening Assessment 0 [facility] Medical Equipment Procedure Code Equipment Code Equipment Original Text Equipment Identifier Dates Patch Vascu-Guar d Taper Bovine Pericardial 8x.8cm Cardiovascular [place] - [id number] Start: 06-20-2016 Clinical Notes 06-21-2016 to 04-10-2023 Tamanna Gordon MD - 02/23/2023 10:20 AM EDTJewilmar Costa MD - 05/12/2022 12:00 PM EDT Note Date & Type Note Facility 04-10-2023 Note [facility] Cardiology Clinic Note Chief Complaint: Patient here for 1 year follow up CAD, PVD, carotid artery stenosis, and hypertension. He was admitted to [facility] a few weeks ago for GI bleed. He has stopped taking aspirin and meloxicam, but continues to take Plavix. He was started on torsemide for LE edema, which he says has been helping a lot. He denies chest pain, SOB, and lightheadedness. Trying to regain his strength back. HPI: Nancy Savage is a 78 y.o. male follow up coronary artery disease status post CABG and carotid artery stenosis status post carotid endarterectomy- completed at [facility] in 2016 Had labs in November 2021. He wants to know if he can stop taking Plavix due to easy bruising. LE edema resolves by morning. Denies chest pain and SOB. Overall states he feels well, denies any limiting activity symptoms. States when he is working on cars he gets bruises and that has his biggest complaint is bruises down both arms. Denies any other bleeding tendencies or concerns. UPDATE 04/10/2023 Recent discharge from the hospital due to an acute ulcer of the pyloric antrum with gastrointestinal bleeding and anemia due to blood loss. Hemoglobin was 5.4. He was given 2 units and general surgery consulted. Started on IV Protonix. Doing better since has been home. No chest pain, no significant shortness of breath. Energy levels are improving. Cardiology ROS: Review of Systems Respiratory: Positive for snoring. Hematologic/Lymphatic: Bruises/bleeds easily. Musculoskeletal: Positive for arthritis, back pain, joint pain, myalgias and neck pain. All other systems reviewed and are negative. Past Medical History He has a past medical history of Carotid artery stenosis, Coronary artery disease, and PVD (peripheral vascular disease) ([facility]). Surgical History He has a past surgical history that includes Cholecystectomy; Replacement total hip lateral position; Carotid endarterectomy; Back surgery; Cardiac catheterization; and Coronary artery bypass graft. Social History He reports that he has quit smoking. His smoking use included cigarettes. He does not have any smokeless tobacco history on file. He reports that he does not currently use alcohol. No history on file for drug use. Family History Family History Problem Relation Name Age of Onset Cancer Mother Coronary artery disease Father Hypertension Father Allergies Patient has no known allergies. Medications Current Outpatient Medications: aspirin 81 mg EC tablet, Take 81 mg by mouth in the morning., Disp: , Rfl: atorvastatin (Lipitor) 40 mg tablet, Take 1 tablet every day by oral route., Disp: , Rfl: cetirizine (ZyrTEC) 10 mg tablet, Take 10 mg by mouth in the morning., Disp: , Rfl: clopidogrel (Plavix) 75 mg tablet, Take 1 tablet (75 mg) by mouth in the morning., Disp: 90 tablet, Rfl: 3 hydrALAZINE (Apresoline) 25 mg tablet, Take 25 mg by mouth in the morning and at bedtime., Disp: , Rfl: hydroCHLOROthiazide (HYDRODiuril) 25 mg tablet, hydrochlorothiazide 25 mg tablet TAKE ONE TABLET BY MOUTH IN THE MORNING FOR 90 DAYS, Disp: , Rfl: meloxicam (Mobic) 15 mg tablet, meloxicam 15 mg tablet TAKE ONE TABLET BY MOUTH DAILY NEEDED, Disp: , Rfl: metoprolol tartrate (Lopressor) 25 mg tablet, Take 12.5 mg by mouth in the morning and at bedtime., Disp: , Rfl: Last Recorded Vitals BP 127/62 (BP Location: Left arm, Patient Position: Sitting) Pulse 58 Ht 1.778 m (5' 10 ) Wt 88.9 kg (196 lb) SpO2 97% BMI 28.12 kg/m??? Physical Examination: GENERAL: alert and oriented x3, well developed, in no acute distress. HEAD: atraumatic, normocephalic. EYES: JOSE, EOMI. NECK: trachea midline, no JVD present, no carotid bruits present. CARDIAC: S1, S2 present. RRR. No murmur, rubs, or gallops. RESPIRATORY: CTAB, no increased effort of breathing, no rales, rhonchi, or wheezing. ABDOMEN: soft, nontender, nondistended. EXTREMITIES: no lower extremity edema, peripheral pulses are 2+ bilaterally. No rash/skin discoloration present. NEURO: strength/sensation equal and symmetric in bilateral upper and lower extremities. PSYCH: appropriate mood, affect, and judgement. Investigations: Echocardiogram 03/2023: Conclusion: 1. Normal global left ventricular systolic function; EF is 55 to 60%. Mild left ventricular hypertrophy. 2. Normal right ventricular size and systolic function. 3. No significant valvular dysfunction 4. Grade 2 diastolic dysfunction 5. Unable to assess right-sided pressures due to lack of measurable tricuspid regurgitation Assessment: 1. Carotid artery stenosis - Follow-up with vascular surgeon as scheduled in [facility] I65.29: Occlusion and stenosis of unspecified carotid artery 2. Coronary atherosclerosis - CABG ???4 in 2017 3. Peripheral venous insufficiency I87.2: Venous insufficiency (chronic) (peripheral) 4. Edema of lower extremity R60.0: Local (more content not included)... [facility] 04-09-2023 Note [id number] [facility] 02-23-2023 Note HNO ID: [id number] Author: Tamanna Gordon MD Service: ? Author Type: Physician Type: Progress Notes Filed: 02/23/2023 10:22 AM Note Text: Follow up Visit Mr. Nancy Savage is S/P Left Carotid Endarectomy - date 06/20/16 SUBJECTIVE: Since his last visit, no complaints. No hospitalizations. He gets pain injections in the c spine. EXAM: Left Neck Incision: Clean dry and well healed. HEMOGLOBIN (g/dL) Date Value 06/21/2016 10.5 HEMATOCRIT (%) Date Value 06/21/2016 32.6 WBC (k/uL) Date Value 06/21/2016 8.48 PLATELET COUNT (k/uL) Date Value 06/21/2016 130 IMPRESSION: doing Well. Continue plavix, baby asa, statin. PLAN: Carotid Duplex in 24 months. Bin Gordon MD [facility] 02-23-2023 History of Present illness Narrative Follow up Visit Mr. Nancy Savage is S/P Left Carotid Endarectomy - date 06/20/16 SUBJECTIVE: Since his last visit, no complaints. No hospitalizations. He gets pain injections in the c spine. EXAM: Left Neck Incision: Clean dry and well healed. HEMOGLOBIN (g/dL) Date Value 06/21/2016 10.5 HEMATOCRIT (%) Date Value 06/21/2016 32.6 WBC (k/uL) Date Value 06/21/2016 8.48 PLATELET COUNT (k/uL) Date Value 06/21/2016 130 IMPRESSION: doing Well. Continue plavix, baby asa, statin. PLAN: Carotid Duplex in 24 months. Bin Gordon MD documented in this encounter [facility] [facility] 131/72 well controll ed- continue medications Renal function was normal [facility] 05-24-2022 Note Continue GDMT-aspiri n, Lipitor, Plavix, metoprolol Discussed with patient Plavix needs to continue because of carotid artery disease and status post carotid endarterectomy, unless he has any significant bleeding tendencies with blood in urine blood in stool GI bleeding or needing blood transfusions and he voiced understanding Lipids reviewed and well controlled [facility] 05-24-2022 Note F/U with vascular griffiths rgery annually s/p Lt CEA D/W pt that he needs to continue ASA and plavix for CEA and he voiced understanding [facility] 05-24-2022 Note Patient here for 1 y ear follow up carotid artery stenosis, CAD, and PVD. Had labs in November 2021. He wants to know if he can stop taking Plavix due to easy bruising. LE edema resolves by morning. Denies chest pain and SOB. Review of Systems Respiratory: Positive for snoring. Hematologic/Lymphatic: Bruises/bleeds easily. Musculoskeletal: Positive for arthritis, back pain, joint pain, myalgias and neck pain. All other systems reviewed and are negative. [facility] 05-24-2022 Note [facility] CARDIOLOGY PROGR ESS NOTE HPI Patient here for 1 year follow up carotid artery stenosis, CAD, and PVD. Had labs in November 2021. He wants to know if he can stop taking Plavix due to easy bruising. LE edema resolves by morning. Denies chest pain and SOB. Overall states he feels well, denies any limiting activity symptoms. States when he is working on cars he gets bruises and that has his biggest complaint is bruises down both arms. Denies any other bleeding tendencies or concerns. Review of Systems Respiratory: Positive for snoring. Hematologic/Lymphatic: Bruises/bleeds easily. Musculoskeletal: Positive for arthritis, back pain, joint pain, myalgias and neck pain. All other systems reviewed and are negative. Visit Vitals BP 131/72 (BP Location: Left arm, Patient Position: Sitting) Pulse 58 Ht 1.778 m (5' 10 ) Wt 91.2 kg (201 lb) SpO2 96% BMI 28.84 kg/m??? Smoking Status Former BSA 2.12 m??? Medications: Current Outpatient Medications on File Prior to Visit Medication Sig Dispense Refill aspirin 81 mg EC tablet Take 81 mg by mouth in the morning. atorvastatin (Lipitor) 40 mg tablet Take 1 tablet every day by oral route. cetirizine (ZyrTEC) 10 mg tablet Take 10 mg by mouth in the morning. clopidogrel (Plavix) 75 mg tablet TAKE 1 TABLET EVERY DAY BY ORAL ROUTE. 90 tablet 0 hydrALAZINE (Apresoline) 25 mg tablet Take 25 mg by mouth in the morning and at bedtime. hydroCHLOROthiazide (HYDRODiuril) 25 mg tablet hydrochlorothiazide 25 mg tablet TAKE ONE TABLET BY MOUTH IN THE MORNING FOR 90 DAYS meloxicam (Mobic) 15 mg tablet meloxicam 15 mg tablet TAKE ONE TABLET BY MOUTH DAILY NEEDED metoprolol tartrate (Lopressor) 25 mg tablet Take 12.5 mg by mouth in the morning and at bedtime. No current facility-administered medications on file prior to visit. Physical Exam: Constitutional: Appearance: Normal appearance. Without apparent distress HENT: Head: Normocephalic and atraumatic. Nose: Nose normal. Mouth/Throat: Mouth: Mucous membranes are moist. Eyes: Extraocular Movements: Extraocular movements intact. Conjunctiva/sclera: Conjunctivae normal. Neck: Vascular: No JVD. Cardiovascular: Rate and Rhythm: Normal rate and regular rhythm. Pulses: Dorsalis pedis pulses are 3 on the right side and 3on the left side. Posterior tibial pulses are 3 on the right side and 3 on the left side. Heart sounds: Normal heart sounds, S1 normal and S2 normal. Pulmonary: Effort: Pulmonary effort is normal. Breath sounds: Normal breath sounds. Abdominal: General: Bowel sounds are normal. Palpations: Abdomen is soft. Musculoskeletal: General: Normal range of motion. Cervical back: Normal range of motion. Right lower leg: No edema. Left lower leg: No edema. Skin: General: Skin is warm and dry. Capillary Refill: Capillary refill takes less than 2 seconds. Neurological: General: No focal deficit present. Wide based gait Mental Status: She is alert and oriented to person, place, and time. Psychiatric: Mood and Affect: Mood normal. Behavior: Behavior normal. Thought Content: Thought content normal. Judgment: Judgment normal. Labs: 11/16/2021-CBC normal, renal function and liver function both normal Total cholesterol 95, triglycerides 87, HDL 36 and LDL 43 well-controlled Last lab values have been reviewed CV Testing: No echocardiogram results found for the past 12 months Assessment/Plan: Carotid artery stenosis F/U with vascular surgery annually s/p Lt CEA D/W pt that he needs to continue ASA and plavix for CEA and he voiced understanding CAD (coronary artery disease) Continue GDMT-aspirin, Lipitor, Plavix, metoprolol Discussed with patient Plavix needs to continue because of carotid artery disease and status post carotid endarterectomy, unless he has any significant bleeding tendencies with blood in urine blood in stool GI bleeding or needing blood transfusions and he voiced understanding Lipids reviewed and well controlled HTN (hypertension) 131/72 well controlled- continue medications Renal function was normal Return to clinic in 1 year or earlier if needed Follow-up with vascular surgery as scheduled [facility] 05-12-2022 Note HNO ID: [id number] Author: Chari Costa MD Service: ? Author Type: Physician Type: Progress Notes Filed: 05/12/2022 12:55 PM Note Text: Neurology Clinic - May 12, 2022 Reason for visit: Mr. Savage is referred by SELF for my opinion regarding left femoral neuropathy. My final recommendation will be communicated back to the requesting physician by way of shared medical record or letter. HISTORY OF PRESENT ILLNESS: Patient is a 77 year old, right-handed, White, male with history of arthritis, BPH, CAD, cholelithiasis, HTN. History gathered from patient and electronic medical records. He had L hernia repair in 2017. He had no issues post op - he had no weakness - he remained physically post-op - fixing cars, mowing the lawn, repairing lawn mowers, correcting/leveling tombstones. He always had issues with walking (walks with a limp) due to LBP and h/o back surgeries(L4-5 laminectomies); has residual R foot drop. Approximately 9-12 months ago, he started having a L groin pain. He noticed that he had a bulge in the L groin(depending on what he eats) which causes pain. If he pushes the bulge in or uses the hernia belt, the pain is better. 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 Fernandez reviewed, and he thought it was post op hematoma and did not recommend surgery. He has reduced his physical activity and L groin pain is improved. He is here to evaluate for femoral neuropathy. PAST MEDICAL HISTORY Diagnosis Date Arthritis BPH (benign prostatic hyperplasia) CAD (coronary artery disease) Cholelithiasis Hypertension PAST SURGICAL HISTORY Procedure Laterality Date BACK SURGERY HX BYPASS GRAFT OTHR,CAROTID Left 06/20/2016 Carotid Endarectomy COLONOSCOPY HERNIA REPAIR HX PAST SURGICAL HISTORY OF 01/02/2016 Open heart / 4 vessel- Dr. Rainey- [facility] REMOVAL GALLBLADDER TOTAL HIP REPLACEMENT MEDICATIONS: Current Outpatient Medications Medication Sig Dispense Refill aspirin, enteric coated (ASPIRIN, ENTERIC COATED) 81 mg EC tablet Take 81 mg by mouth once daily. tamsulosin ER (FLOMAX) 0.4 mg Take 0.4 mg by mouth once daily. (Patient not taking: Reported on 02/04/2021 ) hydrALAZINE (APRESOLINE) 25 mg tablet Take 25 mg by mouth twice daily. meloxicam (MOBIC) 15 mg tablet Take 15 mg by mouth once daily. prn metoprolol tartrate, short acting, (LOPRESSOR) 25 mg tablet Take 12.5 mg by mouth twice daily. clopidogrel (PLAVIX) 75 mg tablet Take 75 mg by mouth once daily. atorvastatin (LIPITOR) 80 mg tablet Take 40 mg by mouth once daily. fluticasone (FLOVENT) 110 mcg/actuation inhaler Inhale 1 Puff as instructed as needed. cetirizine (ZYRTEC) 10 mg tablet Take 10 mg by mouth once daily. (Patient not taking: Reported on 02/04/2021 ) No current facility-administered medications for this visit. ALLERGY: ALLERGIES No Known Allergies FAMILY HISTORY Problem Relation Age of Onset Cancer Mother Heart Mother Social History Tobacco Use Smoking status: Never Smokeless tobacco: Never Substance Use Topics Alcohol use: Yes Drug use: No DATA: Radiology: Laboratory: Other: REVIEW OF SYSTEMS: per HPI General: no wt. loss/gain, change in appetite, fever, malaise HEENT: no headache, problems with vision, hearing Cardiac: no chest pain, palpitation Respiratory: no shortness of breath, cough, cold GI: (+) change in consistency in bowels (loose to solid), (-)abdominal pain : no incontinence, frequency, urgency Musculoskeletal: no joint/muscle pain, no swelling Skin: no rash Endocrine: no cold/hot intolerance, thyroid, diabetes Immunologic: no known immunologic disorders Neurologic/Psychiatric: no other known neurologic or psychiatric problems PHYSICAL EXAM: BP 149/64 Pulse 61 HEENT: atraumatic, normocephalic Neck: supple Extremities: good pulses NEUROLOGICAL EXAM: MSE: Awake, alert, oriented x 3, language intact, attention and concentration normal CN: pupils are equal and reactive to light, funduscopy: clear disc margins, EOMI, no nystagmus, V1-V3 intact, no facial weakness, normal hearing to communication, good elevation of soft palate, tongue midline with good strength, no dysarthria Motor: Gait: (+) steppage gait, able to put weight on toes/heels with difficulty on tandem No pronator drift, rapid finger movements are symmetrical Normal tone and bulk No adventitious movements Power: Right Left Neck flexion 5/5 Neck extension 5/5 Trapezius 5/5 5/5 Deltoids 5/5 5/5 Biceps 5/5 5/5 Triceps 5/5 5/5 Wrist Ext 5/5 5/5 Wrist Flex 5/5 5/5 Finger Ext 5/5 5/5 FDI 5/5 5/5 ADM 5/5 5/5 APB 5/5 4/5 FDP 2,3 5/5 5/5 FDP 4,5 5/5 5/5 FPL 5/ 5/5 Hip Flexors 5/ 5/5 Knee abd/add / 5/5 Knee Extensors /5 5/5 Knee Flexors 5/5 5/5 Ankle DF 4/5 5/5 Ankl (more content not included)... [facility] 05-12-2022 History of Present illness Narrative Neurology Clinic - May 12, 2022 Reason for visit: Mr. Savage is referred by SELF for my opinion regarding left femoral neuropathy. My final recommendation will be communicated back to the requesting physician by way of shared medical record or letter. HISTORY OF PRESENT ILLNESS: Patient is a 77 year old, right-handed, White, male with history of arthritis, BPH, CAD, cholelithiasis, HTN. History gathered from patient and electronic medical records. He had L hernia repair in 2017. He had no issues post op - he had no weakness - he remained physically post-op - fixing cars, mowing the lawn, repairing lawn mowers, correcting/leveling tombstones. He always had issues with walking (walks with a limp) due to LBP and h/o back surgeries(L4-5 laminectomies); has residual R foot drop. Approximately 9-12 months ago, he started having a L groin pain. He noticed that he had a bulge in the L groin(depending on what he eats) which causes pain. If he pushes the bulge in or uses the hernia belt, the pain is better. 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 Fernandez reviewed, and he thought it was post op hematoma and did not recommend surgery. He has reduced his physical activity and L groin pain is improved. He is here to evaluate for femoral neuropathy. PAST MEDICAL HISTORY Diagnosis Date Arthritis BPH (benign prostatic hyperplasia) CAD (coronary artery disease) Cholelithiasis Hypertension PAST SURGICAL HISTORY Procedure Laterality Date BACK SURGERY HX BYPASS GRAFT OTHR,CAROTID Left 06/20/2016 Carotid Endarectomy COLONOSCOPY HERNIA REPAIR HX PAST SURGICAL HISTORY OF 01/02/2016 Open heart / 4 vessel- Dr. Rainey[facility] REMOVAL GALLBLADDER TOTAL HIP REPLACEMENT MEDICATIONS: Current Outpatient Medications Medication Sig Dispense Refill aspirin, enteric coated (ASPIRIN, ENTERIC COATED) 81 mg EC tablet Take 81 mg by mouth once daily. tamsulosin ER (FLOMAX) 0.4 mg Take 0.4 mg by mouth once daily. (Patient not taking: Reported on 02/04/2021 ) hydrALAZINE (APRESOLINE) 25 mg tablet Take 25 mg by mouth twice daily. meloxicam (MOBIC) 15 mg tablet Take 15 mg by mouth once daily. prn metoprolol tartrate, short acting, (LOPRESSOR) 25 mg tablet Take 12.5 mg by mouth twice daily. clopidogrel (PLAVIX) 75 mg tablet Take 75 mg by mouth once daily. atorvastatin (LIPITOR) 80 mg tablet Take 40 mg by mouth once daily. fluticasone (FLOVENT) 110 mcg/actuation inhaler Inhale 1 Puff as instructed as needed. cetirizine (ZYRTEC) 10 mg tablet Take 10 mg by mouth once daily. (Patient not taking: Reported on 02/04/2021 ) No current facility-administered medications for this visit. ALLERGY: ALLERGIES No Known Allergies FAMILY HISTORY Problem Relation Age of Onset Cancer Mother Heart Mother Social History Tobacco Use Smoking status: Never Smokeless tobacco: Never Substance Use Topics Alcohol use: Yes Drug use: No DATA: Radiology: Laboratory: Other: REVIEW OF SYSTEMS: per HPI General: no wt. loss/gain, change in appetite, fever, malaise HEENT: no headache, problems with vision, hearing Cardiac: no chest pain, palpitation Respiratory: no shortness of breath, cough, cold GI: (+) change in consistency in bowels (loose to solid), (-)abdominal pain : no incontinence, frequency, urgency Musculoskeletal: no joint/muscle pain, no swelling Skin: no rash Endocrine: no cold/hot intolerance, thyroid, diabetes Immunologic: no known immunologic disorders Neurologic/Psychiatric: no other known neurologic or psychiatric problems PHYSICAL EXAM: BP 149/64 Pulse 61 HEENT: atraumatic, normocephalic Neck: supple Extremities: good pulses NEUROLOGICAL EXAM: MSE: Awake, alert, oriented x 3, language intact, attention and concentration normal CN: pupils are equal and reactive to light, funduscopy: clear disc margins, EOMI, no nystagmus, V1-V3 intact, no facial weakness, normal hearing to communication, good elevation of soft palate, tongue midline with good strength, no dysarthria Motor: Gait: (+) steppage gait, able to put weight on toes/heels with difficulty on tandem No pronator drift, rapid finger movements are symmetrical Normal tone and bulk No adventitious movements Power: Right Left Neck flexion 5/5 Neck extension 5/5 Trapezius 5/5 5/5 Deltoids 5/5 5/5 Biceps 5/5 5/5 Triceps 5/5 5/5 Wrist Ext 5/5 5/5 Wrist Flex 5/5 5/5 Finger Ext 5/5 5/5 FDI 5/5 5/5 ADM 5/5 5/5 APB 5/5 4/5 FDP 2,3 5/5 5/5 FDP 4,5 5/5 5/5 FPL 5/5 5/5 Hip Flexors 5/5 5/5 Knee abd/add 5/5 5/5 Knee Extensors 5/5 5/5 Knee Flexors 5/5 5/5 Ankle DF 4/5 5/5 Ankle PF 5-/5 5/5 Inversion 2-3/5 5/5 Eversion 2-3/5 5/5 Toe Flexion 0/5 5/5 Toe Extension 0/5 5/5 Coordination: intact finger to nose and heel to talbert Reflexes: B T Br K A Plantars R 2+ 2+ 2+ 2+ 0 down L 2+ 2+ 2+ 2+ 0 down Sensory: intact to light touch, reduced pinprick from R mid foot with intact PP in the L femoral nerve distribution, intact position and vibration Romberg's deferred ASSESSMENT AND PLAN: Mr. Savage is a 77 y/o male with h/o arthritis, BPH, CAD, cholelithiasis, HTN; consulted for L femoral neuropathy. Examination reveals a right foot drop but no weakness in the L femoral innervated muscles or sensory loss in the L femoral nerve distribution. As discussed with patient, suspect that the inguinal mass may be causing femoral nerve irritation but no findings on exam to suggest a femoral neuropathy. Will put in a general surgery consult for second opinion. He will try to get in to his original surgeon but if unable, will call for an appointment. I spent a total of 60 minutes on the date of the service which included preparing to see the patient, [id number] patient care, completing clinical documentation, obtaining and/or reviewing separately obtained history, performing a medically appropriate examination, and counseling and educating the patient/family/caregiver. My final recommendations will be communicated back to the requesting physician by way of shared medical record or letter via US mail. Chari Costa MD Neurology Please send a copy of clinic note to: 1. Nancy Savage [id number] [facility] [address] documented in this encounter [facility] 02-07-2022 Note PROCEDURE: XR TIB_FI B RT 2V HISTORY: Pain in lower limb ; right lower leg laceration from glass bottle COMPARISON: None. FINDINGS: BONES:No fracture, acute abnormality, or significant arthropathy. SOFT TISSUES:Anterior mid talbert soft tissue injury with overlying bandage. No radiopaque foreign body. EFFUSION:None visible. OTHER: Negative. IMPRESSION: 1. No bone involvement. 2. Anterior talbert soft tissue injury. No radiopaque foreign body. Electronically authenticated by: AMANUEL BAILON Date: 2022-02-07 15:01 [facility] 06-21-2016 History of Past i llness Narrative Problem Noted Date Resolved Date Urinary retention 06/21/2016 07/31/2018 Overview: requiring straight cath x2 post-op Plan: if patient still unable to void, may require sagastume placement Continue Flomax documented as of this encounter (statuses as of 05/12/2022) [facility]12[facility] History of Past illness Narrative* Problem Noted Date Resolved Date Urinary retention 06/21/2016 07/31/2018 Overview: requiring straight cath x2 post-op Plan: if patient still unable to void, may require sagastume placement Continue Flomax documented as of this encounter (statuses as of 12/29/2022) [facility] History of Past illness Narrative* Problem Noted Date Diagnosed Date Resolved Date Urinary retention 06/21/2016 07/31/2018 Overview: requiring straight cath x2 post-op Plan: if patient still unable to void, may require sagastume placement Continue Flomax documented as of this encounter (statuses as of 02/23/2023) [facility] [place] noteNo assessment information availableTri[facility] Work Phone: Evaluation note* Diagnosis Unilateral inguinal hernia without obstruction or gangrene, recurrence not specified- Primary [facility] [place] [facility] Diagnosis Bilateral carotid artery stenosis- Primary Occlusion and stenosis of carotid artery without mention of cerebral infarction [facility] [place] [facility]* Diagnosis Internal carotid artery stenosis, bilateral- Primary documented in this encounter [facility] for referral (narrative)* Outpatient Procedure (Routine) - Authorized Specialty Diagnoses / Procedures Referred By Mamta t Referred To [facility] Diagnoses Bilateral carotid artery stenosis Procedures US CAROTID ARTERIES [facility] DUPLEX SCAN EXTRACRANIAL [place] [address] [place] [address] [facility] [place] [address] Referral ID Status Reason Start Date Expiration Date Visits Requested Visits Authorized [id number] Authorized Auto-Generat ed Referral 12/29/2022 12/29/2023 1 1 [facility] for referral (narrative)* Outpatient Procedure (Routine) - Pending Review Specialty Diagnoses / Procedures Referred By Mamta t Referred To Contact [facility] [place] Diagnoses Internal carotid artery stenosis, bilateral Procedures US CAROTID ARTERIES [facility] LAB DUPLEX SCAN EXTRACRANIAL [place] [address] [place] [address] [facility] [address] [place] [address] Referral ID Status Reason Start Date Expiration Date Visits Requested Visits Authorized [id number] Pending Review Auto-Generat ed Referral 02/23/2023 02/23/2024 1 1 [facility] Summary Purpose Family History No Family History Records FoundNo Family History Records FoundNo Family History Records FoundNo Family History Records FoundNo Family History Records FoundNo Family History Records FoundNo Family History Records Found Advance Directives No Advanced Directives Records Found Advance Directive Response Recorded Date/ Time Advance Directives No August 3:44pm Documents on File Type Date Recorded Patient Quality Improvement Coordinator (Rn) Expl anation Advance Directive(s) 08/31/2015 10:40 AM Advance Directive Response Recorded Date/ Time Advance Directives No August 2:44pm Chief Complaint and Reason for Visit Chief Complaint possible hernia Reason for Referral Specialty Diagnoses / Procedures Referred By Mamta britton Referred To Contact General Surgery Diagnoses Unilateral inguinal hernia without obstruction or gangrene, recurrence not specified Procedures CONSULT TO GENERAL SURGERY OFFICE/OUTPATIENT NEW HIGH MDM 60-[place] [address] [place] [address] Referral ID Status Reason Start Date Expiration Date Visits Requested Visits Authorized [id number] Authorized PCP Requested Referral 2 05/12/2023 1 1 Additional Source Comments (unrecognized sect ion and content) No Status Records FoundNo Status Records FoundNo Status Records FoundNo Status Records FoundNo Status Records FoundNo Status Records FoundNo Status Records Found INFORMATION SOURCE (unrecogn ized section and content) DATE CREATED AUTHOR 01/04/2018 [facility] DATE CREATED AUTHOR AUTHOR'S ORGANIZ ATION 02/13/2022 [facility] DATE CREATED AUTHOR AUTHOR'S ORGANIZ ATION 05/29/2022 [facility] DATE CREATED AUTHOR AUTHOR'S ORGANIZ ATION 06/15/2022 [facility] DATE CREATED AUTHOR AUTHOR'S ORGANIZ ATION 02/24/2023 [facility] DATE CREATED AUTHOR AUTHOR'S ORGANIZ ATION 04/18/2023 [facility] DATE CREATED AUTHOR AUTHOR'S ORGANIZ ATION 06/05/2023 [facility] Care Teams (unrecognized sec tion and content) Team Status: Inactive Member Role Status Dates Karen Sen MD Primary Care Provider Active Pal Fernandez DO Attending Provider Active Team Status: Active Member Role Status Dates Karen Sen MD Primary Care Provider Active Porter Sample Case Relationship Specialty Start Date End Date Karen Sen PCP - General Family Medicine 08/19/14 Team Status: Inactive Member Role Status Dates Karen Sne MD Primary Care Provider Active Michael Chery MD Attending Provider Active Porter Sample Case Relationship Specialty Start Date End Date Karen Sen PCP - General Family Medicine 08/19/14 Porter Sample Case Relationship Specialty Start Date End Date Karen Sen MD PCP - General Family Medicine 08/19/14 Goals (unrecognized section and content) Goals may be documented in a n alternate sectionGoals may be documented in an alternate section Source Comments (unrecognize d section and content) In the event this informatio n is protected by the Federal Confidentiality of Alcohol and Drug Abuse Patient Records regulations: The Federal rules restrict any use of the information to criminally investigate or prosecute any alcohol or drug abuse patient.[facility] the event this information is protected by the Federal Confidentiality of Alcohol and Drug Abuse Patient Records regulations: The Federal rules restrict any use of the information to criminally investigate or prosecute any alcohol or drug abuse patient.[facility] the event this information is protected by the Federal Confidentiality of Alcohol and Drug Abuse Patient Records regulations: The Federal rules restrict any use of the information to criminally investigate or prosecute any alcohol or drug abuse patient.[facility] Reason for Visit (unrecogniz ed section and content) Reason Comments New Patient Reason Comments Follow Up FOR RECORDS PERTAINING TO PATIENTS WHO ARE OR HAVE BEEN ENROLLED IN A CHEMICAL DEPENDENCY/SUBSTANCEABUSE PROGRAM, SOME INFORMATION MAY BE OMITTED. This clinical summary was aggregated from multiple sources. Caution should be exercised in using it in the provision of clinical care. This summary normalizes information from multiple sources, and as a consequence, information in this document may materially change the coding, format and clinical context of patient data. In addition, data may be omitted in some cases. CLINICAL DECISIONS SHOULD BE BASED ON THE PRIMARY CLINICAL RECORDS. [facility] [employer] [facility]. provides no warranty or guarantee of the accuracy or completeness of information in this document.
[2023-07-17] MEDS: REGADENOSON 0.4 MG/5 ML SYRINGE IV (08:12)
== END 2023-07-17 06:08 | disposition home or self-care (01) ==
LOC: NM 06:09
PROVIDERS: PCP Family Medicine; Visit Provider Internal Medicine Interventional Cardiology
DX: I25.119 Atherosclerotic heart disease of native coronary artery with unspecified angina pectoris (principal); Z01.818 Encounter for other preprocedural examination
CPT/HCPCS: 78452; 93017; A9500; J2785

== ENCOUNTER 2024-12-03 08:41 | Outpatient (OUT) | payer MEDICARE, OTHER, SELFPAY ==
--- OUTSIDE RECORDS SUMMARY | 2024-12-03 08:46 | XMS_ITS | CCD ---
Author Organization [facility] Care Team Providers Care Shirt Ironer Name Role Phone PHYSICIAN, DEFAULT Unavailable Unavailable PHYSICIAN, DEFAULT Unavailable Unavailable LEXI FLORES Admitting Unavailable LEXI FLORES Attending Unavailable ADAMARIS, DR AMANUEL Lemus Consulting Unavailable MCKINLEY, DR ADAN Primary Care Unavailable MELISSA DECKER Consulting Unavailable MCKINLEY, DR ADAN Admitting Unavailable MCKINLEY, DR ADAN Primary Care Unavailable MCKINLEY, DR ADAN Consulting Unavailable MCKINLEY, DR ADAN Attending Unavailable MD Karen Sen Primary Care Provider DO Pal Fernandez Attending Provider [phone] Karen Sen Primary Care Provider MD Karen Sen Primary Care Provider MD Michael Chery Attending Provider Pal Fernandez Attending Unavailable Karen Sen Primary Care Unavailable Pal Fernandez Admitting Unavailable Michael Chery Admitting Unavailable Michael Chery Attending Unavailable Karen Sen Primary Care Unavailable Karen Sen Primary Care Provider Karen Sen MD Primary Care Provider [phone] KAREN SEN Primary Care Unavailable KAREN SEN Referring Unavailable TAMANNA GORDON Attending Unavailable TAMANNA GORDON Referring Unavailable KAREN SEN Primary Care Unavailable KAREN SEN Primary Care Unavailable CHARI COSTA Attending Unavailable Bran COYLE Attending Unavailable Bran COYLE Attending Unavailable Bran COYLE Attending Unavailable DEREK MAY Attending Unavailable ELLIE GENTILE Attending Unavailable ELLIE GENTILE Attending Unavailable MEHRDAD HILL Attending Unavailable TERRA ANAYA Attending Unavailable Allergies Allergy Classification Reported Allergen(s) Allergy Type Date of Onset Reaction(s) Facility (1 source) Aspirin Drug Allergy 6 [facility] Repository (1 source) NSAIDs; Translations: [NSAIDs] Propensity to adverse reactions (disorder) [facility] Repository (1 source) No Known Medication Allergies; Translations: [No Known Medication Allergies] Propensity to adverse reactions (disorder) [facility] Repository (1 source) NSAIDs; Translations: [NSAIDS (NON-STEROIDAL ANTI-INFLAMMATOR Y DRUG)] Propensity to adverse reactions to drug (disorder) 4 [facility] Repository Medications Current Medications Medication Drug Class(es) Dates Sig (Normalized) Sig (Original) clopidogrel 75 mg oral tablet (4 sources) P2Y12 Platelet Inhibitor Start: 05-24-2024 Clopidogrel 75 mg tablet Active MG PO May 24, 2024 12:00am take 1 tablet by mouth once iftikhar y clopidogrel (PLAVIX) 75 mg tablet Take 75 mg by mouth once daily. 0 Active Comment on above: Take 75 mg by mouth once daily. hydrALAZINE hydrochloride 25 mg oral tablet (4 sources) Arteriolar Vasodilator Start: 05-24-2024 Hydralazine 25 mg tablet Active MG PO May 24, 2024 12:00am take 1 tablet by mouth twice ana ly hydrALAZINE (APRESOLINE) 25 mg tablet Take 25 mg by mouth twice daily. 0 Active Comment on above: Take 25 mg by mouth twice daily. hydroCHLOROthiazide 25 mg oral tablet (4 sources) Thiazide Diuretic Start: Hydrochlorothiazide 25 mg tablet Active MG PO May 24, 2024 12:00am take 1 tablet by mouth once iftikhar y hydroCHLOROthiazide (HYDRODIURIL, ESIDRIX) 25 mg tablet Take 25 mg by mouth once daily. 0 Active Comment on above: Take 25 mg by mouth once daily. metoprolol tartrate 25 mg oral tablet (4 sources) beta-Adrenergic Tam Start: 05-24-2024 Metoprolol Tartrate 25 mg tablet Active MG PO May 24, 2024 12:00am metoprolol tartr ate, short acting, (LOPRESSOR) 25 mg tablet Take 12.5 mg by mouth twice daily. 0 Active Comment on above: Take 12.5 mg by mout h twice daily. pantoprazole 40 mg delayed release oral tablet (1 source) Proton Pump Inhibitor Start: 05-24-2024 Pantoprazole 40 mg tablet,delayed release (DR/EC) Active MG PO May 24, 2024 12:00am Completed/Discontinued Medications Medication Drug Class(es) Dates Sig [...] tablet (3 sources) HMG-CoA Reductase Inhibitor atorvastatin (LIPITOR) 80 mg tablet Take 40 [...] Take 5,000 Units by mouth once daily. 120 actuat fluticasone propionate 0.11 mg/actuat metered dose inhaler (3 sources) Corticosteroid fluticasone (FLOVENT) 110 mcg/actuation inhaler Inhale 1 Puff as instructed as needed. 0 Active Comment on above: Inhale 1 Puff as ins tructed as needed. meloxicam 15 mg oral tablet (3 sources) Nonsteroidal Anti-inflammatory Drug meloxicam (MOBIC) 15 mg tablet Take 15 mg by mouth as needed. prn 0 Active Comment on above: Take 15 mg by mouth as needed. prn tamsulosin hydrochloride 0.4 mg oral capsule (3 [...] Coronary arteriosclerosis; Translations: [Atherosclerotic heart disease of [place] coronary artery without angina pectoris] Onset: 06-21-2016 07-12-2021 Chronic Disorders of lipid metabolism (2 sources) Mixed hyperlipidemia; Translations: [Mixed hyperlipidemia] Onset: 04-10-2023 Chronic E Codes: Cut/pierceb (1 source) Contact [...] Episodic Occlusion or stenosis of precerebral arteries (6 sources) Carotid artery stenosis; Translations: [Occlusion and stenosis of unspecified carotid artery] Onset: 06-20-2016 07-12-2021 Chronic Open wounds of extremities (4 sources) Laceration without foreign body, right lower leg, initial encounter; Translations: [LACERATION W/O FB RT LOW LEG INIT] Onset: 02-07-2022 Episodic Other aftercare (1 source) Other jail (current) drug therapy; Translations: [OTH FUNERAL HOME ATTENDANT CURRENT DRUG THERAPY] Onset: 02-09-2022 Episodic Other [...] Test Name Value Interpretation Reference Range Facility Office Visiton 11-11-2024 Follow-up visit [id number] Steve Savage A 1945 M Date Provider Department Center 11/11/2024 MEHRDAD [facility] Family History Problem Relation Age of Onset Cancer Mother Coronary artery disease Father Hypertension Father Family Status - Relation Status Age at Mother Father Level of Service:79992 SC OFFICE/OUTPATIENT ESTABLISHED MOD MDM 30 MIN Normal [facility] Office Visiton 04-04-2024 Follow-up visit [id number] Steve Savage A 1945 M Date Provider Department Center 04/04/2024 TERRA BRICENO [facility] Family History Problem Relation Age of Onset Cancer Mother Coronary artery disease Father Hypertension Father Family Status - Relation Status Age at Mother Father Level of Service:36741 SC OFFICE/OUTPATIENT ESTABLISHED LOW MDM 20 MIN Normal [facility] Operative Reporton Operative Report [id number]#1.00TIFF Normal [facility] Formson 04-24-2023 Forms [id number]#1.00TIFF Normal [facility] Lab Reportson 04-17-2023 Lab Reports [id number]#1.00CD:127 Normal [facility] Consent for Procedure/Surger yon 04-12-2023 Consent for Procedure/Surgery [id number]#1.00CD:127 Normal [facility] Facesheeton 04-12-2023 Facesheet [id number]#1.00CD:127 Normal [facility] Consultation Noteon 04-11-20 Consultation Note [id number]#1.00CD:127 Normal [facility] General Surgery Office/Clini c Noteon 04-11-2023 General Surgery Office/Clinic Note Chief Complaint post operative follow up HPI Staff 26 day post operative follow up post EGD completed while in-patient at [facility]. Taking Carafate and Protonix as prescribed. History [...] tab(s), Oral, Daily fluticasone Nasal 0.05 mg/inh [place] hydrALAZINE 25 mg Tab, 25 mg= 1 [...] (COVID-19) mRNA BNT-162b2 vax 09/11/2020 Recorded Normal [facility] Comment on above: Result Comment: Elec tronically Signed By: LEONIDES BRISCOE, Bran Lemus\alia\Date and Time Signed: 04/11/23 16:56 EDT Operative Reporton Operative Report [id number]#1.00CD:127 Normal [facility] Consultation Noteon 03-22-20 Consultation Note [id number]#1.00CD:127 Normal [facility] Consultation Note [id number]#1.00CD:127 [facility] Lab Reportson 03-22-2023 Lab Reports [id number]#1.00CD:127 Normal [facility] Lab Reports [id number]#1.00CD:127 Normal [facility] Operative Reporton Operative Report [id number]#1.00CD:127 Normal [facility] CNOVon 02-23-2023 CNOV Office Visit (VASSAV ) NANCY SAVAEG ([id number]) 1945 M Date Time Provider Department 02/23/23 [...] Bin Gordon MD Referring Provider: KAREN SEN [[id number]] Allergies As of Date: 02/23/2023 (No Known Allergies) Date Reviewed: 02/23/2023 Reviewed by: Verenice Hylton RN - Fully Assessed Reason for Visit: Follow Up [171] Primary Visit Diagnosis:Internal carotid artery stenosis, bilateral [I65.23] Order(s): CAROTID ARTERIES [facility] [[id number]] Order #: [id number] FUTURE Prescriptions as of 02/23/2023 - hydroCHLOROthiazide [...] for Encounter Date Provider Department Center 02/23/2023 [id number], TAMANNA JACOBYOVASSAV REJ Encounter Status:Closed by TAMANNA GORDON on 02/23/23 Normal [facility] US CAR[facility] 02-23-2023 US CAROTID ARTERIES [facility] Non-Invasive Vascular Laboratory [facility] Carotid Duplex Bilateral/Complete Date of service/time: 02/23/2023 [...] Interpreting physician: Vicenta Almeida MD Final CC i4.ms Medical Image : [id number] See Link below for Image Normal [facility] THERESA Antinuclear Antibodieson 05-29-2022 Antinuclear Abs, IFA Positive Critically abnormal . [facility] Comment on above: Result Comment: Nega tive <1:80 Borderline 1:80 Positive >1:80 Performed By: #### E SR, PTH #### [facility] [address] [place] [address] [place] #### THERESA #### [facility] , Homogeneous Pattern 1:160 High . [facility] Comment on above: Result Comment: ICAP nomenclature: AC-1 Performed By: #### E SR, PTH #### [facility] [place] [facility] [address] [place] [address] [place] #### THERESA #### [facility] , Note 1 Normal . [facility] Comment on above: Result Comment: For [...] titers Nucleosomes, Histones Drug-induced SLE Speckled Sm, SERVICE TECH, SCL-70, SLE,MCTD,PSS (diffuse form), SS-A/SS-B Sjogrens Nucleolar SCL-70, PM-1/SCL High titers Scleroderma, PM/DM Centromere Centromere PSS (limited form) w/Crest syndrome variable Nuclear Dot Sp100,y57-attqov Primary Biliary Cirrhosis Nuclear GP210, Primary Biliary Cirrhosis Membrane vika A,B,C Performed at: - [facility] [address] [id number] Needle Setter: Spencer Ibarra PhD, Phone: [phone] PERFORMED BY: [place] [address] PATHOLOGIST PAPER CONE MACHINE OPERATOR SYLVAIN ZAPATA M.D. Performed By: #### E SR, PTH #### [facility] [place] [facility] [address] [place] [address] #### THERESA #### [facility] , Erythrocyte Sedimentation Ra cody 05-29-2022 ESR (Bld) [Velocity] 5 mm/h Normal 0-19 [facility] Comment on above: Result Comment: PERF ORMED BY: [place] [address] PATHOLOGIST PAPER CONE MACHINE OPERATOR SYLVAIN ZAPATA M.D. Performed By: #### E SR, PTH #### [facility] [place] [facility] [address] #### THERESA #### [facility] , Erythrocyte sedimentation ra te by Photometric methodOrdered By: Michael Chery on 05-29-2022 ESR Photometric method (Bld) [Velocity] 5 mm/hr 0-19 [facility] Parathyroid Hormone Intacton 05-29-2022 Parathyroid Hormone Intact 79.4 pg/mL Normal [facility] Comment on above: Result Comment: PERF ORMED BY: [address] [place] [address] PATHOLOGIST PAPER CONE MACHINE OPERATOR SYLVAIN ZAPATA M.D. Performed By: #### E SR, PTH #### [facility] [place] [facility] [address] [place] [address] #### THERESA #### [facility] , Serum or plasma intact parat hyroid hormone measurement (mass/volume)Ordered By: Michael Chery on 05-29-2022 Parathyrin.intact [Mass/Vol] 79.4 pg/mL [facility] XR Hand Complete Left*on XR Hand [...] signed by Chaitanya Ashton on 05/29/20221647 Normal [facility] Strategic Planning Consultant XR Hand Complete Right*on XR Hand Complete Right* Refer to concurrent left hand radiograph dictation. Report reported and signed by Chaitanya Ashton on 05/29/20221647 Normal [facility] Strategic Planning Consultant CNOVon 05-12-2022 CNOV Office Visit (NEURAV ) NANCY SAVAGE ([id number]) 1945 M Date Time Provider Department 05/12/22 [...] 5/5 5 (more content not included)... Normal [facility] Blood Urea Nitrogenon 2021 Urea nitrogen [Mass/Vol] 9 mg/dL Normal - [facility] Comment on above: Performed By: #### C PEPE GARCIA #### [facility] [address] pelvis w conon 02-13-2022 CT pelvis w con [facility] [place] [address] [place] [address] CT Scan Report Signed Patient: Nancy Savage MR#: [id number] : 1945 Acct:[id number] Age/Sex: 76 / M ADM Date: 02/13/22 Loc: CT Room: Type: [facility] Attending Dr: Pal Fernandze DO Copies to: Pal Fernandez DO Ordering [...] Hanna Jr., D.O.02/13/2022 1:20 PM Dictation Location: [place] [address] Transcribed By: [facility] 02/13/22 1320 Dictated By: Mayo Hanna Jr, DO 02/13/22 1316 Signed By: 02/13/22 1320 Normal [facility] Creatinineon 02-13-2022 Creatinine [Mass/Vol] 0.97 mg/dL Normal 0.64-1.27 [facility] Comment on above: Performed By: #### C JOSE, BUN #### [address] Estimated GFR ( Zahraa > 60 Normal [facility] Comment on above: Result Comment: GFR estimated reference range: According to KDOQI guidelines, <60 ml/min/1.73m2 is sufficient to diagnose a patient with chronic kidney disease. PERFORMED BY: [place] [address] PATHOLOGIST PAPER CONE MACHINE OPERATOR SYLVAIN ZAPATA M.D. Performed By: #### C JOSE, BUN #### [facility] [place] [facility] [address] [place] [address] Estimated GFR (Non- Am > 60 Normal [facility] Comment on above: Performed By: #### C JOSE, BUN #### [facility] [place] [facility] [address] [place] [address] [place] Creatinine and Glomerular fi ltration rate.predicted panel (S/P/Bld)Ordered By: Pal Fernandez on 02-13-2022 Creatinine [Mass/Vol] 0.97 mg/dL 0.64-1.27 [facility] Estimated glomerular filtrat ion rate (GFR) non- AmericanOrdered By: Pal Fernandez on 02-13-2022 GFR/1.73 sq M.predicted among non-blacks MDRD (S/P/Bld) [Vol rate/Area] > 60 mL/Min [facility] No Panel InformationOrdered By: Pal Fernandez on 02-13-2022 Estimated GFR () > 60 mL/Min [facility] Comment on above: GFR estimated refere nce range: According to KDOQI guidelines, <60 ml/min/1.73m2 is sufficient to diagnose a patient with chronic kidney disease. Pharmacy Creatinine Clearance (Chem N/A [facility] Serum or plasma urea nitroge n measurement (mass/volume)Ordered By: Pal Fernandez on 02-13-2022 Urea nitrogen [Mass/Vol] 9 mg/dL 04-07 [facility] Covid-19 PCR ([facility])on 01-13 SARS-CoV-2 (COVID-19) RNA YURIDIA+probe Ql (Unsp spec) Detected Critically abnormal NOT DETECTED [facility] Comment on above: Result Comment: This test is not yet approved or cleared by the [place] FDA. When there are no FDA-approved or cleared tests available, and other criteria are met, FDA can make tests available under an emergency access mechanism called an Emergency Use Authorization (EUA). The EUA for this test is supported by the [place] of Health and Human Service's declaration that [...] longer be used). Performed By: #### C [facility] #### [facility] [address] [address] [address] Antonio Dave Vital Signs Date Time Vital Sign Value Performing Clinician Grace marinelli 05-24-2024 10:53-0500 Body height 1554.48 cm [facility] 05-24-2024 10:53-0500 Body mass index (BMI) [Ratio] 0.4 kg/m2 [facility] 05-24-2024 10:53-0500 Body temperature 98.7 [degF] [facility] 05-24-2024 10:53-0500 Body weight 91.62 kg [facility] 05-24-2024 10:53-0500 Diastolic blood pressure 71 mm[Hg] [facility] 05-24-2024 10:53-0500 Heart rate 71 /min [facility] 05-24-2024 10:53-0500 Respiratory rate 18 /min [facility] 05-24-2024 10:53-0500 SaO2% (BldA) [Mass fraction] 98 % [facility] 05-24-2024 10:53-0500 Systolic blood pressure 118 mm[Hg] [facility] 02-23-2023 10:10-0400 Diastolic blood pressure 67 mm[Hg] Tamanna Gordon MD Work Phone: [facility] 02-23-2023 10:10-0400 Heart rate 48 /min Tamanna Gordon MD Work Phone: [facility] 02-23-2023 10:10-0400 Systolic blood pressure 120 mm[Hg] Tamanna Gordon MD Work Phone: [facility] 05-12-2022 11:50-0400 Diastolic blood pressure 64 mm[Hg] Chari Costa MD Work Phone: [facility] 05-12-2022 11:50-0400 Heart rate 61 /min Chari Costa MD Work Phone: [facility] 05-12-2022 11:50-0400 Systolic blood pressure 149 mm[Hg] Chari Costa MD Work Phone: [facility] Encounters Encounter Date Encounter Type Care Provider Facility Start: 11-11-2024 End: 11-11-2024 ambulatory EHAB [facility] Start: 05-24-2024 End: 05-24-2024 ambulatory [facility] Work Phone: Start: 05-24-2024 End: 05-24-2024 Patient encounter procedure [facility] Work Phone: Start: 04-04-2024 End: 04-04-2024 ambulatory TERRA ANAYA [facility] Start: 02-25-2024 End: 02-25-2024 ambulatory ELLIE GENTILE Not Available Start: 09-19-2023 End: 09-19-2023 ambulatory DEREK MAY Not Available Start: 09-14-2023 End: 09-14-2023 ambulatory DEREK MAY Not Available Start: 07-03-2023 End: 07-03-2023 ambulatory ELLIE GENTILE Not Available Start: 05-16-2023 End: 05-17-2023 ambulatory Bran R NILL Facility:CD:[id number] Start: 04-11-2023 End: 04-12-2023 ambulatory Bran R NILL Facility:[facility] Start: 04-06-2023 ambulatory Bran NILL Facility:[facility] Start: 03-21-2023 End: 03-23-2023 ambulatory Bran R NILL Facility:CD:[id number] Start: 02-23-2023 End: 02-23-2023 ambulatory KAREN SEN Facility:[facility] Start: 02-23-2023 End: 02-23-2023 Patient encounter procedure Tamanna Gordon MD Work Phone: Vascular Surgery Comment on above: Internal carotid art severo stenosis, bilateral (Primary Dx) Start: 12-29-2022 Orders Only Tamanna Gordon MD Work Phone: Vascular Surgery Comment on above: Bilateral carotid ar natalia stenosis (Primary Dx) Start: 05-29-2022 End: 05-29-2022 ambulatory Michael Chery Facility:[facility] Start: 05-29-2022 End: 05-29-2022 ambulatory MD Karen Sen Work Phone: [facility] [place] [facility] Work Phone: Start: 05-29-2022 End: 05-29-2022 Patient encounter procedure MD Karen Sen Work Phone: [facility] [place] [facility] [address] Start: 05-12-2022 End: 05-12-2022 ambulatory KAREN SEN Facility:[facility] Start: 05-12-2022 End: 05-12-2022 Patient encounter procedure Chari Costa MD Work Phone: Neurology Comment on above: Unilateral inguinal hernia without obstruction or gangrene, recurrence not specified (Primary Dx) Start: 02-13-2022 End: 02-13-2022 ambulatory Pal Fernandez Facility:[facility] Start: 02-13-2022 End: 02-13-2022 Patient encounter procedure MD Karen Sen Work Phone: [facility] [place] Start: 02-07-2022 End: 02-07-2022 ambulatory LEXI FLORES Facility: Start: 01-31-2022 End: 01-31-[address] KAREN SEN Facility: Start: 10-02-2017 End: 10-03-2017 Ambulatory DEFAULT PHYSICIAN Facility:[facility] Procedures Date Procedure Procedure Detail Performing Clinician Start: 02-13-2022 CT of pelvis with contrast MD Karen Sen Work Phone: Start: 08-25-2021 Colonoscopy Chari Bahena i, MD Work Phone: Plan of Treatment Date Care Activity Detail Author Start: 02-23-2025 US CAROTID ARTERIES [facility] US CAROTID ARTERIES [facility] Vascular Lab Routine Internal carotid artery stenosis, bilateral Expected: 02/23/2025 [facility] Work Phone: Comment on above: Expected: 02/23/2025 Start: 02-24-2024 BP CONTROLLED (<130/80) BP CONTROLLE D (<130/80) [facility] Start: 03-16-2023 Influenza vaccination C [facility] Start: 08-25-2022 Colonoscopy COLONOSCOPY [facility] Start: 08-25-2022 COLORECTAL CANCER SCREENING COLORECTAL CANCER SCREENING [facility] Start: 07-16-2022 ADVANCE DIRECTIVE DISCUSSION ADVANCE DIRECTIVE DISCUSSION [facility] Start: 07-16-2022 DEPRESSION ASSESSMENT DEPRESSION ASS ESSMENT [facility] Start: 05-29-2022 [facility] Start: 04-17-2022 DIABETES SCREEN DIABETES SCREEN [facility] Start: 03-16-2022 Influenza vaccination INFLUENZA (#1) [facility] Start: 07-25-2021 COVID-19 VACCINE (4 - Booster for Pfizer series) COVID-19 VACCINE (4 - Booster for Pfizer series) [facility] Start: 07-25-2021 COVID-19 VACCINE (4 - Pfizer series) COVID-19 VACCINE (4 - Pfizer series) [facility] Start: 07-16-2021 ADVANCE DIRECTIVE DISCUSSION ADVANCE DIRECTIVE DISCUSSION [facility] Start: 07-16-2021 DEPRESSION ASSESSMENT DEPRESSION ASS ESSMENT [facility] Start: 02-16-2012 PNEUMOCOCCAL: 65+ (1 - PCV) PNEUMOCOCCAL: 65+ (1 - PCV) [facility] Start: 1997 SHINGRIX VACCINE (1 of 2) SHINGRIX VACCINE (1 of 2) [facility] Start: 02-16-1992 COLOGUARD (FIT-DNA) COLOGUARD (FIT-D NA) [facility] Start: 02-16-[address] COLONOGRAPHY [facility] Start: 02-16-1992 FECAL OCCULT BLOOD FECAL OCCULT BLOO D [facility] Start: 02-16-1992 SIGMOIDOSCOPY SIGMOIDOSCOPY [facility] Start: 1982 LIPID SCREEN LIPID SCREEN [facility] Start: 1966 Urine microalbumin profile DTAP,TDAP,TD (1 - Tdap) [facility] Start: 1965 ANNUAL PCP TEAM AUTOMOTIVE PROFESSIONAL STORM DISEASE VISIT ANNUAL PCP TEAM CHRONIC DISEASE VISIT [facility] Start: 1965 BP CONTROLLED (<130/80) BP CONTROLLE D (<130/80) [facility] Start: 1965 Hepatitis B surface antibody level LDL CHOLESTEROL [facility] Start: 1965 HEPATITIS C SCREENING HEPATITIS C [facility] Homogenous nuclear A b pattern [Titer] in Serum [facility] Work Phone: Nuclear Ab [Titer] i n Serum [facility] Work Phone: End: 12-30-2023 US CAROTID ARTERIES [facility] US CAROTID ARTERIES [facility] Vascular Lab Routine Bilateral carotid artery stenosis 1 Occurrences starting 12/29/2022 until 12/30/2023 [facility] Work Phone: Comment on above: 1 Occurrences starti ng 12/29/2022 until 12/30/2023 Patel Gabrielai c Payers Date Payer Category Payer Self-pay [id number] 2022 Unknown [id number] 2021 Unknown 2011 Medicare MEDICARE MEDICAR E A AND B [id number] 2011-Present [phone] [place] [address] Medicare [id number] 1959 Medicare [id number] 1959 Unknown [id number] 1945 Unknown [id number] 93 1945 Unknown [id number] 93 1945 Unknown [id number] [id number] 27 1945 Unknown [id number] [id number] 27 1945 Unknown [id number] [id number] 27 1945 Unknown [id number] [id number] 27 1945 Unknown [id number] [id number] 27 1945 Unknown [id number] [id number] 259 1945 Unknown [id number] 1945 Unknown [id number] 1945 Unknown [id number] Unknown [facility] [id number] Unknown [id number] Unknown [id number] 31 Social History Date Type Detail Facility [facility] Work Phone: Start: 1945 Sex Assigned At Male F [facility] Start: 08-26-2014 [facility] Start: 08-26-2014 Tobacco use and exposure Smokeless tobacco non-user [facility] Start: 02-04-2021 End: 02-23-2023 Alcohol intake Current drinker of alcohol (finding) [facility] Start: 1945 Sex Assigned At Not on file [facility] [place] Start: 04-16-2018 End: 02-23-2023 History of Social function [facility] Start: 04-16-2018 End: 02-23-2023 Tobacco use panel [facility] Adult Depression Screening Assessment 0 [facility] Work Phone: Start: 05-24-2024 Sex Male (finding) [facility] Medical Equipment Procedure Code Equipment Code Equipment Original Text Equipment Identifier Dates Patch Vascu-Guar d Taper Bovine Pericardial 8x.8cm Cardiovascular [place] - [id number] Start: 06-20-2016 Clinical Notes 06-21-2016 to 11-11-2024 Tamanna Gordon MD - 02/23/2023 10:20 AM EDTChari Costa MD - 05/12/2022 12:00 PM EDT Note Date & Type Note Facility 11-11-2024 Note . [facility] 11-11-2024 Note [facility] Cardiology Clinic Note Chief Complaint: Patient here for 6 mo follow up CAD, hypertension, and hyperlipidemia. Had routine labs at the [place] in Jul 2024. Denies chest pain, SOB, and palpitations. Doing very well. HPI: Nancy Savage is a 79 y.o. male With a history of coronary artery disease, CABG, peripheral vascular disease including carotid stenosis and hypertension here in routine follow-up. Doing well; no new symptoms. Physically active without exertional chest pain or shortness of breath. Cardiology ROS: Review of Systems Cardiovascular: Positive for leg swelling (resolves by morning). Respiratory: Positive for snoring. Hematologic/Lymphatic: Bruises/bleeds easily. Musculoskeletal: Positive for arthritis, back pain, joint pain, myalgias and neck pain. Neurological: Positive for loss of balance. All other systems reviewed and are negative. Past Medical History He has a past medical history of Anemia associated with acute blood loss, Carotid artery stenosis, Coronary artery disease, and PVD (peripheral vascular disease). Surgical History He has a past surgical [...] Coronary artery disease Father Hypertension Father Allergies Nsaids (non-steroidal anti-inflammatory drug) Medications Current Outpatient Medications: atorvastatin (Lipitor) 40 mg tablet, Take 1 tablet every day by oral route., Disp: , Rfl: cetirizine (ZyrTEC) 10 mg tablet, Take 10 mg by mouth in the morning., Disp: , Rfl: cholecalciferol (D3-5) 5,000 Units tablet, Take 5,000 Units by mouth in the morning., Disp: , Rfl: clopidogrel (Plavix) 75 mg tablet, TAKE ONE TABLET BY MOUTH DAILY IN THE MORNING, Disp: 90 tablet, Rfl: 3 hydrALAZINE (Apresoline) 25 mg tablet, Take 25 mg by mouth in the morning and at bedtime., Disp: , Rfl: hydroCHLOROthiazide (HYDRODiuril) 25 mg tablet, hydrochlorothiazide 25 mg tablet TAKE ONE TABLET BY MOUTH IN THE MORNING FOR 90 DAYS, Disp: , Rfl: meloxicam (Mobic) 7.5 mg tablet, Take 7.5 mg by mouth if needed each day., Disp: , Rfl: metoprolol tartrate (Lopressor) 25 mg tablet, Take 12.5 mg by mouth in the morning and at bedtime., Disp: , Rfl: pantoprazole (ProtoNix) 40 mg EC tablet, Take 40 mg by mouth in the morning and at bedtime., Disp: , Rfl: sucralfate (Carafate) 1 gram tablet, TAKE ONE TABLET BY MOUTH BEFORE MEALS AND AT BEDTIME, Disp: , Rfl: torsemide (Demadex) 10 mg tablet, TAKE ONE TABLET BY MOUTH ONCE DAILY IN THE MORNING, Disp: , Rfl: Last Recorded Vitals BP 124/54 (BP Location: Left arm, Patient Position: Sitting) Pulse 51 Ht 1.778 m (5' 10 ) Wt 93.4 kg (206 lb) SpO2 97% BMI 29.56 kg/m??? Physical Examination: GENERAL: alert and oriented [...] extremities. PSYCH: appropriate mood, affect, and judgement. INVESTIGATIONS: 07/05/23 CBC normal BUN 25, CR 1.27 GFR 59- normal Liver function normal Last lab values have been reviewed CV Testing: ECG today- essentially unchanged from previous- reviewed with pt 07/17/23 Lexiscan Stress test- No ischemia or reversible defect- normal myocardial perfusion- No acute concerns- reviewed with pt and Echocardiogram 03/2023: Conclusion: 1. Normal global left ventricular systolic function; EF is 55 to 60%. Mild left ventricular hypertrophy. 2. Normal right ventricular size and systolic function. 3. No significant valvular dysfunction 4. Grade 2 diastolic dysfunction 5. Unable to assess right-sided pressures due to lack of measurable tricuspid regurgitation 02/23/23 Carotid US- [facility] monitoring IMPRESSION Compared to prior study of 02/04/2021, no change. RIGHT SIDE Internal carotid artery: 20-39% stenosis. Vertebral artery: Patent and antegrade flow noted. Innominate artery: Patent. Subclavian artery: Patent. LEFT SIDE Common carotid artery: Endarterectomy patch at distal measuring 1.16 cm. Internal carotid artery: 20-39% steno (more content not included)... [facility] 04-04-2024 Note Lipid abnormalities are well controlled with lipitor 40 mg daily Continue lifestyle modifications Annual labs- lipid and liver function [facility] 04-04-2024 Note Coronary artery dise ase is unchanged. No concerning symptoms today- overall pt is doing well from a cardiac perspective. Continue GDMT- No ASA r/t intolerance, continue plavix, metoprolol, lipitor Lipid levels are well controlled Continue current treatment regimen. Continue current medications. Cardiac status will be reassessed in 6 months. [facility] 04-04-2024 Note Hypertension is unch anged. HTN is well controlled 117/54- continue all meds Hydrochlorothiazide, hydralazine, metoprolol and demadex Renal function stable Continue current treatment regimen. Continue current medications. Blood pressure will be reassessed at the next regular appointment. [facility] 04-04-2024 Note [facility] CARDIOLOGY PROGR ESS NOTE HPI: Nancy Savage is a 79 y.o. male here for routine F/U HPI 79 yo male presents for routine F/U for CAD, PVD, carotid artery stenosis, and hypertension. States overall he is feeling well. Denied chest pain, SOB, Orthopnea, palpitations, syncope or falls Admits that he does bruise easily and bleeds when he accidentally has a cut. Review of Systems Respiratory: Positive for snoring. Hematologic/Lymphatic: Bruises/bleeds easily. Musculoskeletal: Positive for arthritis, back pain, joint pain, myalgias and neck pain. All other systems reviewed and are negative Previous HPI 09/21/23 HPI 78 yo male presents to clinic r/t abnormal stress test yesterday at his pre op evaluation. Denied chest pain, SOB, Orthopnea or palpitations. States if he had to walk a block or up a flight of stairs that he could without chest pain or SOB limiting his activity. Only activity limiting factor is drop foot. Review of Systems Constitutional: Negative. Respiratory: Negative. Cardiovascular: Negative. Neurological: Negative. All other systems reviewed and are negative. Previous HPI per Dr Hill 04/10/23 Chief Complaint: Patient here for 1 year follow up CAD, PVD, carotid artery stenosis, and hypertension. He was admitted to [facility] a few weeks ago for GI bleed. [...] stenosis status post carotid endarterectomy- completed at [facility] in 2016 Had labs in November 2021. [...] shortness of breath. Energy levels are improving. Visit Vitals BP 117/54 (BP Location: Right arm, Patient Position: Sitting) Pulse 51 Ht 1.778 m (5' 10 ) Wt 88.9 kg (196 lb) SpO2 94% BMI 28.12 kg/m??? Smoking Status Former BSA 2.1 m??? Allergies Allergen Reactions Nsaids (Non-Steroidal Anti-Inflammatory Drug) GI bleeding Medications: Current Outpatient Medications on File Prior to Visit Medication Sig Dispense Refill atorvastatin (Lipitor) 40 mg tablet Take 1 tablet every day by oral route. cetirizine (ZyrTEC) 10 mg tablet Take 10 mg by mouth in the morning. clopidogrel (Plavix) 75 mg tablet TAKE ONE TABLET BY MOUTH DAILY IN THE MORNING 90 tablet 3 hydrALAZINE (Apresoline) 25 mg tablet Take 25 mg by mouth in the morning and at bedtime. hydroCHLOROthiazide (HYDRODiuril) 25 mg tablet hydrochlorothiazide 25 mg tablet TAKE ONE TABLET BY MOUTH IN THE MORNING FOR 90 DAYS metoprolol tartrate (Lopressor) 25 mg tablet Take 12.5 mg by mouth in the morning and at bedtime. pantoprazole (ProtoNix) 40 mg EC tablet Take 40 mg by mouth in the morning and at bedtime. sucralfate (Carafate) 1 gram tablet TAKE ONE TABLET BY MOUTH BEFORE MEALS AND AT BEDTIME torsemide (Demadex) 10 mg tablet TAKE ONE TABLET BY MOUTH ONCE DAILY IN THE MORNING cholecalciferol (D3-5) 5,000 Units tablet Take 5,000 Units by mouth in the morning. meloxicam (Mobic) 7.5 mg tablet Take 7.5 mg by mouth if needed each day. No current facility-administered medications on file prior [...] normal. Palpations: Abdomen is soft. Musculoskeletal: General: Unsteady gait r/t Rt foot drop Right lower le+ ankle edema. Left lower leg: Non edema. Skin: General: Skin is (more content not included)... [facility] 04-04-2024 Note Pt here for six luis h follow up. Pt denies sob, palpatation, chest pain. Review of Systems Respiratory: Positive for snoring. Hematologic/Lymphatic: Bruises/bleeds easily. Musculoskeletal: Positive for arthritis, back pain, joint pain, myalgias and neck pain. All other systems reviewed and are negative. [facility] 04-09-2023 Note [id number] #[id number] [facility] 02-23-2023 Note HNO ID: [id number] Author: Tamanna Gordon MD Service: ? Author [...] Duplex in 24 months. Bin Gordon MD [facility] 02-23-2023 History of Present illness Narrative Follow up Visit Mr. Nancy Savaeg is S/P Left Carotid Endarectomy - date [...] Bin Gordon MD documented in this encounter [facility] 05-12-2022 Note HNO ID: [id number] Author: Chari Costa MD Service: ? Author [...] 4/5 5/5 Ankl (more content not included)... [facility] 05-12-2022 History of Present illness Narrative Neurology [...] 01/02/2016 Open heart / 4 vessel- Dr. aRiney- [facility] REMOVAL GALLBLADDER TOTAL HIP [...] 5/5 Hip Flexors 5/5 5/5 Knee abd/add 5/ 5/5 Knee Extensors 5/5 5/5 Knee Flexors [...] which included preparing to see the patient, [id number] patient care, completing clinical documentation, obtaining and/or reviewing separately obtained history, performing a medically appropriate examination, and counseling and educating the patient/family/caregiver. My final recommendations will be communicated back to the requesting physician by way of shared medical record or letter via US mail. Chari Costa MD Neurology Please send a copy of clinic note to: 1. Nancy Savage [id number] [address] [place] [id number] documented in this encounter [facility] 02-07-2022 Note PROCEDURE: XR TIB_FI B [...] authenticated by: AMANUEL BAILON Date: 2022-02-07 15:01 [facility] 06-21-2016 History of Past i llness Narrative Problem Noted Date Resolved Date Urinary retention 06/21/2016 07/31/2018 Overview: requiring straight cath x2 post-op Plan: if patient still unable to void, may require sagastume placement Continue Flomax documented as of this encounter (statuses as of 05/12/2022) [facility] History of Past illness Narrative* Problem Noted Date Resolved Date Urinary retention 06/21/2016 07/31/2018 Overview: requiring straight cath x2 post-op Plan: if patient still unable to void, may require sagastume placement Continue Flomax documented as of this encounter (statuses as of 12/29/2022) [facility] History of Past illness Narrative* Problem Noted Date Diagnosed Date Resolved Date Urinary retention 06/21/2016 07/31/2018 Overview: requiring straight cath x2 post-op Plan: if patient still unable to void, may require sagastume placement Continue Flomax documented as of this encounter (statuses as of 02/23/2023) [facility]No [facility] Work Phone: Evaluation note* Diagnosis Unilateral inguinal hernia without obstruction or gangrene, recurrence not specified- Primary [facility] Diagnosis Bilateral carotid artery stenosis- Primary Occlusion and stenosis of carotid artery without mention of cerebral infarction [facility] Diagnosis Internal carotid artery stenosis, bilateral- Primary [facility] Outpatient Procedure (Routine) - Authorized Specialty Diagnoses / Procedures Referred By Contac t Referred To [facility] Diagnoses Bilateral carotid artery stenosis Procedures US CAROTID ARTERIES [facility] DUPLEX SCAN EXTRACRANIAL [place] [address] [place] [address] [facility] [address] [place] [address] Referral ID Status Reason Start Date Expiration Date Visits Requested Visits Authorized [id number] Authorized Auto-Generat ed Referral 12/29/2022 12/29/2023 1 1 [facility] Outpatient Procedure (Routine) - Pending Review Specialty Diagnoses / Procedures Referred By Mamta britton Referred To Contact [facility] Diagnoses Internal carotid artery stenosis, bilateral Procedures US CAROTID ARTERIES [facility] LAB DUPLEX SCAN EXTRACRANIAL [place] [address] [place] [address] [facility] [address] [place] [address] Referral ID Status Reason Start Date Expiration Date Visits Requested Visits Authorized [id number] Pending Review Auto-Generat ed Referral 02/23/2023 02/23/2024 1 1 [facility] Summary Purpose Family History No Family History Records FoundNo Family History Records FoundNo Family History Records FoundNo Family History Records FoundNo Family History Records FoundNo Family History Records FoundNo Family History Records FoundNo Family History Records Found Advance Directives No Advanced Directives Records Found Advance Directive Response Recorded Date/ Time Advance Directives No August 3:44pm Documents on File Type Date Recorded Patient Investment Consultant Expl anation Advance Directive(s) 08/31/2015 10:40 AM Advance Directive Response Recorded Date/ Time Advance Directives No August 2:44pm Chief Complaint and Reason for Visit Chief Complaint possible hernia Chief Complaint Admit Date Right elbow laceration May 24 10:29am Reason for Referral Specialty Diagnoses / Procedures Referred By Mamta britton Referred To Contact General Surgery Diagnoses Unilateral inguinal hernia without obstruction or gangrene, recurrence not specified Procedures CONSULT TO GENERAL SURGERY OFFICE/OUTPATIENT NEW HIGH MDM 60-[place] [address] [place] [address] Referral ID Status Reason Start Date Expiration Date Visits Requested Visits Authorized [id number] Authorized PCP Requested Referral 2 05/12/2023 1 1 Additional Source Comments (unrecognized sect ion and content) No Status Records FoundNo Status Records FoundNo Status Records FoundNo Status Records FoundNo Status Records FoundNo Status Records FoundNo Status Records FoundNo Status Records Found INFORMATION SOURCE (unrecogn ized section and content) DATE CREATED AUTHOR 01/04/2018 [facility] DATE CREATED AUTHOR AUTHOR'S ORGANIZ ATION 02/13/2022 [facility] DATE CREATED AUTHOR AUTHOR'S ORGANIZ ATION 05/29/2022 [facility] dical Specialist DATE CREATED AUTHOR AUTHOR'S ORGANIZ ATION 06/15/2022 [facility] DATE CREATED AUTHOR AUTHOR'S ORGANIZ ATION 02/24/2023 [facility] DATE CREATED AUTHOR AUTHOR'S ORGANIZ ATION 06/05/2023 [facility] DATE CREATED AUTHOR AUTHOR'S ORGANIZ ATION 02/26/2024 [facility] dical Specialists EPIC DATE CREATED AUTHOR AUTHOR'S ORGANIZ ATION 11/12/2024 [facility] Care Teams (unrecognized sec tion and content) Team Status: Active Member Role Status Dates Karen Sen MD Primary Care Provider Active Team Status: Inactive Member Role Status Dates Karen Sen MD Primary Care Provider Active S tart: May 24, 2024 End: May 24, 2024 LATANYA Mujica RN [employer] CRANE OPERATOR-C Attending Provider Active Start: May 24, 2024 End: May 24, 2024 Team Status: Inactive Member Role Status Dates Karen Sen MD Primary Care Provider Active Pal Fernandez DO Attending Provider Active Shirt Ironer Relationship Specialty Start Date End Date Karen Sen PCP - General Family Medicine 08/19/14 Team Status: Inactive Member Role Status Dates Karen Sen MD Primary Care Provider Active Michael Chery MD Attending Provider Active Shirt Ironer Relationship Specialty Start Date End Date Karen Sen PCP - General Family Medicine 08/19/14 Shirt Ironer Relationship Specialty Start Date End Date Karen Sen MD PCP - General Family Medicine 08/19/14 Goals (unrecognized section and content) Goals may be documented in a n alternate sectionGoals may be documented in an alternate sectionGoals may be documented in an alternate section Source Comments (unrecognize d section and content) In the event this informatio n is protected by the Federal Confidentiality of Alcohol and Drug Abuse Patient Records regulations: The Federal rules restrict any use of the information to criminally investigate or prosecute any alcohol or drug abuse patient.[facility] the event this information is protected by the Federal Confidentiality of Alcohol and Drug Abuse Patient Records regulations: The Federal rules restrict any use of the information to criminally investigate or prosecute any alcohol or drug abuse patient.[facility] the event this information is protected by the Federal Confidentiality of Alcohol and Drug Abuse Patient Records regulations: The Federal rules restrict any use of the information to criminally investigate or prosecute any alcohol or drug abuse patient.[facility] Reason for Visit (unrecogniz ed section [...] BE BASED ON THE PRIMARY CLINICAL RECORDS. [facility] [employer] [facility]. provides no warranty or guarantee of the accuracy or completeness of information in this document.
--- NOTE | 2024-12-03 09:00 | CA_ITS ---
Patient Name: BASIL FREEMAN MR#: [id number] : 1945 Exam Date: 12/03/2024 Ordering Doctor: DR MEHRDAD HILL M.D. ECHOCARDIOGRAM REPORT PROCEDURE: CA ECHO DOPPLER COMPLETE INDICATIONS: Diastolic dysfunction, CA, CABG, hypertension COMPARISON: None. DESCRIPTION: COMPLETE ECHOCARDIOGRAM Real-time transthoracic echocardiography with 2D, M-mode, spectral and color flow Doppler performed. QUALITY: Technical quality was good. LEFT VENTRICLE: Normal chamber size. Normal left ventricular wall thickness. LV EF: Global left ventricular systolic function is normal; visually estimated ejection fraction is 55 to 60%. No wall motion abnormalities. DIASTOLIC: Grade II diastolic dysfunction. ATRIAL SEPTUM: Visually appears intact. LEFT ATRIUM: Mild dilatation. RIGHT ATRIUM: Mild dilatation. RIGHT VENTRICLE: Normal chamber size. Normal right ventricular systolic function. TRICUSPID VALVE: Normal mobility and thickness. No stenosis with trivial regurgitation. No evidence of pulmonary hypertension. RVSP 24 mmHg MITRAL VALVE: Mildly thickened with normal mobility. No evidence of mitral valve stenosis. Mild mitral annular calcification. Mild to moderate mitral regurgitation. AORTIC VALVE: Normal trileaflet appearance. Thickened aortic valve. Normal leaflet mobility. No evidence of aortic valve stenosis. No aortic regurgitation. AORTIC ROOT: Normal diameter and appearance. PULMONIC VALVE: Normal thickness and mobility. No stenosis. No regurgitation. PERICARDIUM: No evidence of pericardial effusion. IVC: Collapses with inspirations. IVC is normal in size. CONCLUSION: Global left ventricular systolic function is normal; visually estimated ejection fraction is 55 to 60% Normal right ventricular size and systolic function Grade 2, moderate diastolic dysfunction Biatrial dilatation Mild to moderate mitral regurgitation Adult Echocardiography Procedure Report Left Ventricle LVEDD (3.7 - 5.6 cm): 5.00 cm LVESD (2.2 - 4.0 cm): 3.49 cm LVIVS thickness (0.6 - 1.2 cm): 1.18 cm LVPW thickness (0.5 - 1.0 cm): 0.93 cm e': 0.11 m/s E - e': 8.57 LVOT Max Gradient: 3.32 mm Hg LVOT Area (cm2): 0.91 m/s Peak Velocity (LVOT): 0.91 m/s Mean Velocity (LVOT): 0.63 m/s LVOT Diameter 2.57 cm Left Atrium LA Volume Index (2D A2C): 40.53 ml/m2 Left Atrium Systolic Dimension: 3.97 cm Mitral Valve MV E to A Ratio: 1.58 Mitral Valve A-Wave Peak Velocity: 0.62 m/s Mitral Valve E-Wave Peak Velocity: 0.97 m/s Right Ventricle Aorta AO Root Diam: 3.60 cm Aortic Valve AoV Area (Peak Nate): 3.46 cm2, 3.46 cm2 AoV Area (VTI): 3.15 cm2, 3.15 cm2 Peak Velocity(Antegrade Flow): 1.36 m/s Peak Gradient(Antegrade Flow): 7.45 mm Hg Mean Velocity(Antegrade Flow): 0.98 m/s Mean Gradient(Antegrade Flow): 4.31 mm Hg Velocity Time Integral: 38.41 cm Tricuspid Valve Peak Velocity (Regurgitant Flow): 2.29 m/s Pulmonic Valve Mean Gradient: 1.54 mm Hg Mean Velocity: 0.58 m/s Peak Velocity: 0.84 m/s, 1.00 m/s Peak Gradient: 4.02 mm Hg, 2.80 mm Hg Right Atrium Right Atrium Systolic Pressure: 59.50 ml, 59.50 ml Dictated by: Mehrdad Hill M.D. on 12/03/2024 at 16:55 Approved by: Mehrdad Hill M.D. on 12/03/2024 at 17:00
== END 2024-12-03 08:42 | disposition home or self-care (01) ==
PROVIDERS: PCP Family Medicine; Visit Provider Internal Medicine Interventional Cardiology
DX: I51.89 Other ill-defined heart diseases (principal)
CPT/HCPCS: 93306